=== PATIENT | female | born 1995 | race Caucasian/White ===

== ENCOUNTER → 2021-05-27 10:20 | Outpatient (CLI) | payer BC, SELFPAY ==
--- NOTE | 2021-05-27 10:25 | XR_ITS ---
PROCEDURE: XR FOOT WT BEARING LT 3V CLINICAL INDICATION: pain COMPARISON: No exams were available for comparison FINDINGS: No fracture or dislocation. No lytic or blastic change. There is normal mineralization. The joint spaces are well-preserved. No significant degenerative/arthritic changes. No erosive changes evident. Other findings:No calcaneal spur. No radiopaque foreign body IMPRESSION: No acute findings. Dictated by: Bryan Edwards MD 05/27/2021 13:04 Bryan Edwards MD in [place] 05/27/2021 13:04
--- NOTE | 2021-05-27 10:25 | XR_ITS ---
PROCEDURE: XR FOOT WT BEARING RT 3V CLINICAL INDICATION: pain COMPARISON: No exams were available for comparison FINDINGS: No fracture or dislocation. No lytic or blastic change. There is normal mineralization. The joint spaces are well-preserved. No significant degenerative/arthritic changes. No erosive changes evident. Other findings:None. IMPRESSION: Negative right foot Dictated by: Bryan Edwards MD 05/27/2021 13:05 Bryan Edwards MD in [place] 05/27/2021 13:05
== END ==
PROVIDERS: Visit Provider Podiatrist
DX: M79.672 Pain in left foot (principal); M79.671 Pain in right foot
CPT/HCPCS: 73630

== ENCOUNTER 2023-11-08 09:02 | Emergency (ER) | payer OTHER, SELFPAY ==
[2023-11-08 09:05] VITALS: BP 154/74; PULSE 74; RESP 18; TEMP 36.7; O2SAT 98; BMI 36.2
--- NOTE | 2023-11-08 09:17 | EXP.UTC ---
Discharge Plan Disposition Patient Disposition: Home, Self-Care Condition: Good Prescriptions Prescriptions: New cyclobenzaprine 10 mg Tablet 10 mg PO BID PRN (Reason: Muscle Spasm) Qty: 20 0RF methylprednisolone 4 mg Tablets,Dose Pack 4 mg PO DIRECTED 6 Days Qty: 21 0RF Rx Instructions: Take 1 pack as directed for 6 days Referrals Follow up/Referrals: Kyle Fonseca MD [Primary Care Provider] - See instructions Activity Restrictions/Add. Instructions Additional Instructions/Restrictions: Go home and rest. It would be best if you rested tomorrow too. No heavy lifting. No twisting. Take the oral medications as directed. The muscle relaxer (cyclobenzaprine--Flexeril) will make you drowsy, so don't drive or operate heavy machinery after taking it. Don't start the oral steroids (medrol dose pack) until tomorrow, since you had the shots in here today. Follow up with your regular doctor. GO TO THE ER FOR ANY WORSENING SYMPTOMS OR CONCERN, ESPECIALLY BOWEL OR BLADDER ISSUES, SADDLE AREA NUMBNESS, FEVER, ETC Clinical Impressions Clinical Impression: Acute low back pain with sciatica Stand Alone Forms Stand Alone Forms: Work/School Release Instructions Patient Instructions: DI for Low Back Pain, DI for Sciatica, Dexamethasone, Ketorolac Injection Discharge ED Provider: Massimo Copeland [facility] General Stated complaint: back pain Time Seen by Provider: 11/08/23 09:17 History of Present Illness Provider Complaint: She states that for the past 5 days she has had worsening low back pain that radiates down her right leg. She denies any fall or trauma. She denies any urinary symptoms. Related Data Previous Rx's Medication Instructions Recorded cyclobenzaprine 10 mg tablet 10 mg PO BID PRN Muscle Spasm #20 11/08/23 tabs methylprednisolone 4 mg tablets in 4 mg PO DIRECTED 6 days #21 tabs 11/08/23 a dose pack Allergies Allergy/AdvReac Type Severity Reaction Status Date / Time No Known Allergies Allergy Verified 11/08/23 09:17 [facility] Disclaimer: The information contained in this section may have been updated after the patient was seen, as this information can be updated by other users. Social History Smoking Status: Current every day smoker alcohol intake: never current occupational status: other Travel in the last 8 weeks: None ROS Obtained: Yes All systems reviewed & no additional complaints except as documented Constitutional Constitutional: Denies chills and Denies fever(s) Eyes Eyes: Denies eye discharge ENT Ears, Nose, Mouth, and Throat: Denies dizziness, Denies otalgia, Denies neck pain and Denies sore throat Cardiovascular Cardiovascular: Denies chest pain Respiratory Respiratory: Denies shortness of breath, Denies chest congestion, Denies cough, Denies stridor and Denies wheezing Gastrointestinal Gastrointestingal: Denies nausea or vomiting Musculoskeletal Musculoskeletal: Reports as per HPI, Reports back pain and Denies neck pain Integumentary/Breasts Skin/Breast: Denies rash Neurologic Neurologic: Denies dizziness and Denies paresthesias Allergic/Immunologic Allergic/Immunologic: Denies wheezing Physical Exam General General appearance: alert and in no apparent distress Head Head exam: atraumatic, normocephalic and normal inspection Eye Eye exam: Present normal appearance, PERRL and EOMI ENT ENT exam: Present normal exam, normal oropharynx, mucous membranes moist, TM's normal bilaterally and normal external ear exam Neck Neck exam: Present normal inspection, full ROM and trachea midline; Absent meningismus or lymphadenopathy Chest Chest inspection: Present normal inspection and symmetric chest wall rise; Absent tenderness Respiratory Respiratory exam: Present normal lung sounds bilaterally; Absent respiratory distress Cardiovascular Cardiovascular exam: Present regular rate and normal rhythm; Absent JVD Abdominal Exam Abdominal exam: Present soft and normal bowel sounds; Absent distention, tenderness or guarding Extremities Exam Extremities exam: Present normal inspection, full ROM and normal capillary refill; Absent calf tenderness Back Exam Back exam: Present normal inspection; Absent tenderness Neurological Exam Neurological exam: Present alert, oriented X3, CN II-XII intact, normal gait and reflexes normal; Absent motor sensory deficit Expanded Neurological Exam Cranial nerves: Normal: EOM function (II, III, IV, ), facial sensation (V), facial palsy (VII), gag reflex (IX), spinal accessory function (XI) and tongue deviation (XII) Cerebellar function: normal gait Motor strength - LUE: 5/5 Motor strength - RUE: 5/5 Motor strength - LLE: 5/5 Motor strength - RLE: 5/5 Sensory exam upper extremity: Normal: light touch and 2 point discrimination Sensory exam lower extremity: Normal: light touch and 2 point discrimination DTR: 2+: biceps (L), biceps (R), patellar (L), patellar (R), Achilles tendon (L) and Achilles tendon (R) Spinal cord function: Absent saddle anesthesia Psychiatric Psychiatric exam: Present normal affect and normal mood Skin Skin exam: Present warm, dry, intact and normal color Lymphatic Lymphatic Findings: no adenopathy Medical Decision Making Medical Records Medical records reviewed: No I reviewed the patient's medical records. Anthony Inquiry Pt receiving controlled substance: No
[2023-11-08 09:18] LABS: Apearance,Urine Clear (Clear); Color,Urine Yellow (Yellow); PH,Urine 5.5 (5.0-8.5)
[2023-11-08 09:19] LABS: Bilirubin,Urine Negative (Negative); Blood, Urine Negative (Negative); Glucose,Urine (UA) Negative (Negative); Ketones,Urine Negative (Negative); Protein,Urine Negative (Negative); UTC Leukocyte Esterase,Urine Negative (Negative); UTC Nitrate,Urine Negative (Negative); Urobilinogen,Urine 0.2 EU/dl (0.2)
[2023-11-08] MEDS: DEXAMETHASONE 4MG/ML 1ML VIAL 8 MG IM (09:29)
[2023-11-08] MEDS: KETOROLAC 60MG/2ML VIAL 30 MG IM (09:29)
[2023-11-08 09:55] VITALS: BP 154/74; PULSE 74; RESP 18; TEMP 36.7; O2SAT 98
== END 2023-11-08 09:55 | disposition home or self-care (01) ==
PROVIDERS: Emergency Provider Nurse Practitioner Family; PCP Internal Medicine Adolescent Medicine
DX: M54.41 Lumbago with sciatica, right side (principal); F17.210 Nicotine dependence, cigarettes, uncomplicated
CPT/HCPCS: 81003; 96372; 99204; 99212; G0463

== ENCOUNTER 2025-02-11 18:50 | Emergency (ER) | payer OTHER, SELFPAY ==
[2025-02-11] VITALS (9 sets, daily range): BP systolic 127–159; BP diastolic 77–96; PULSE 59–74; RESP 18–19; TEMP 36.8–37.2; O2SAT 97–100; BMI 23.3
--- NOTE | 2025-02-11 18:56 | ECG_ITS ---
APPROVED REPORT Exam: Resting ECG HR:63 bpm ECG Measurements Heart Rate 63 AXES OH 151 P 35 QRSd 98 QRS 35 QT 382 T 24 QTc 389 Conclusion SINUS RHYTHM NORMAL ECG Electronically signed by : COLT DOWLING, 02/11/2025 22:19:49
--- NOTE | 2025-02-11 18:59 | ED_ITS ---
<Statement entered by Matt Ingram MD - 02/11/25 21:52> I was consulted by the MANDY, and we discussed the complexity of the problems being addressed. I approved the treatment and management plan for this patient's care in the emergency department, thus performing a substantive portion of the medical decision making. Matt Ingram MD Discharge Plan Disposition Patient Disposition: Home, Self-Care Condition: Good Prescriptions Prescriptions: New ondansetron 4 mg tablet,disintegrating 4 mg PO QID PRN (Reason: nausea and vomiting) Qty: 10 0RF No Action cyclobenzaprine 10 mg Tablet 10 mg PO BID PRN (Reason: Muscle Spasm) Qty: 20 0RF methylprednisolone 4 mg Tablets,Dose Pack 4 mg PO DIRECTED 6 Days Qty: 21 0RF Rx Instructions: Take 1 pack as directed for 6 days Referrals Follow up/Referrals: Steve Johnson MD [Staff Physician] - See instructions Kyle Fonseca MD [Primary Care Provider] - See instructions Activity Restrictions/Add. Instructions Additional Instructions/Restrictions: I am referring you to general surgery as this is concerning for gallbladder attack. Additionally you have an ovarian cyst that needs to be followed by [facility]. Please call to make an appointment for that as well. If you have any continued new or worsening signs or symptoms follow-up with your PCP return to the ER as needed. Clinical Impressions Clinical Impression: Biliary colic Cholelithiasis Qualifiers: Cholelithiasis location: gallbladder Cholecystitis presence: without cholecystitis Biliary obstruction: with biliary obstruction Qualified Code(s): K 80.21 - Calculus of gallbladder without cholecystitis with obstruction Instructions Patient Instructions: DI for Acute Abdominal Pain Print Language Print Language: Estonian Discharge ED Provider: Matt Ingram General Adult HPI <DAVID Abarca - Last Filed: 02/11/25 21:46> General Chief complaint: Abdominal Pain Stated complaint: Difficulty breathing Time Seen by Provider: 02/11/25 18:59 History of Present Illness HPI narrative: Patient presents for evaluation of right upper quadrant abdominal pain. Patient states that pain began approximately an hour ago now but 20 minutes after eating to peanut butter crackers. Her only other meal today was eggs. Patient has had a normal bowel movement she denies fever chills hemoptysis hematochezia melena vomiting or diarrhea but reports nausea that is associated with this pain. She reports that it hurts to take a deep breath. Very focally tender in the right upper quadrant/right lower chest. She is G4, P2 Ab2. Related Data Previous Rx's ?Medication ?Instructions ?Recorded cyclobenzaprine 10 mg tablet 10 mg PO BID PRN Muscle Spasm #20 11/08/23 tabs methylprednisolone 4 mg tablets in 4 mg PO DIRECTED 6 days #21 tabs 11/08/23 a dose pack ondansetron 4 mg disintegrating 4 mg PO QID PRN nausea and 02/11/25 tablet vomiting #10 tabs Allergies Allergy/AdvReac Type Severity Reaction Status Date / Time No Known Allergies Allergy Verified 11/08/23 09:17 [facility] <DAVID Abarca - Last Filed: 02/11/25 21:46> [facility] Disclaimer: The information contained in this section may have been updated after the patient was seen, as this information can be updated by other users. Social History Smoking Status: Current every day smoker alcohol intake: never current occupational status: other Travel in the last 8 weeks: None Have you lived/traveled outside [place] in past 30 days?: No Contact w/someone who lives/traveled outside US past 30 days?: No Exposure to someone with infectious disease in past 14 days?: No Do you have a fever (greater than 100.4 F or 38 C)?: No Have you tested positive for COVID-19: No Exposed to someone with COVID-19 in past 14 days?: No Do you have a sore throat?: No Do you have a cough?: No Do you have any weakness?: No Do you have any diarrhea?: No Are you experiencing any unusual bleeding?: No Do you have any muscle aches/pain?: No Do you have any abdominal pain?: No Are you experiencing loss of taste or smell?: No Other Medical History Have you received the Pneumonia Vaccine: No <DAVID Abarca - Last Filed: 02/11/25 21:46> ROS Obtained: Yes Systems reviewed as appropriate & no additional complaints except as documented Physical Exam <DAVID Abarca - Last Filed: 02/11/25 21:46> General General appearance: alert Neck Neck exam: Present lymphadenopathy Respiratory Respiratory exam: Present normal lung sounds bilaterally Cardiovascular Cardiovascular exam: Present regular rate Neurological Exam Neurological exam: Present alert and oriented X3 Medical Decision Making <DAVID Abarca - Last Filed: 02/11/25 21:46> Medical Records Medical records reviewed: Yes I reviewed the patient's medical records. Screening: Per USPSTF and CDC recommendations, given the prevalence of disease in our region, it is our hospital?s policy to screen for HIV and viral Hepatitis for all patients aged 18 and over and those with ongoing risk factors. Anthony Inquiry Pt receiving controlled substance: No Vital Signs: 02/11/25 18:58 02/11/25 19:00 02/11/25 19:00 Temperature 98.2 F Temperature Source Oral Pulse Rate 67 71 Pulse Rate [Left Radial] 69 Respiratory Rate 19 Blood Pressure 158/93 H 159/96 H Blood Pressure [Right Arm] 159/96 H Blood Pressure Mean [Right Arm] 117 02 Sat by Pulse Oximetry 99 97 99 Oxygen Delivery Method 02/11/25 19:10 02/11/25 19:20 02/11/25 19:30 Temperature Temperature Source Pulse Rate 74 70 65 Pulse Rate [Left Radial] Respiratory Rate Blood Pressure 152/84 H 155/96 H 139/83 Blood Pressure [Right Arm] Blood Pressure Mean [Right Arm] 02 Sat by Pulse Oximetry 99 100 99 Oxygen Delivery Method 02/11/25 19:40 02/11/25 19:50 02/11/25 20:00 Temperature Temperature Source Pulse Rate 72 70 66 Pulse Rate [Left Radial] Respiratory Rate Blood Pressure 134/77 137/82 143/82 H Blood Pressure [Right Arm] Blood Pressure Mean [Right Arm] 02 Sat by Pulse Oximetry 99 99 99 Oxygen Delivery Method 02/11/25 21:13 Temperature 98.9 F Temperature Source Temporal Artery Scan Pulse Rate 59 L Pulse Rate [Left Radial] Respiratory Rate 18 Blood Pressure 127/85 Blood Pressure [Right Arm] Blood Pressure Mean [Right Arm] 02 Sat by Pulse Oximetry Oxygen Delivery Method Room Air Lab Data Lab results reviewed: Yes I reviewed the patient's lab results. Lab Results 02/11/25 18:58: WBC 11.3 H, RBC 4.31, Hgb 13.0, Hct 38.7, MCV 89.8, MCH 30.2, MCHC 33.6, RDW 13.4, Plt Count 307, MPV 9.7, Neut % (Auto) 69.7, Lymph % (Auto) 23.1, [place] % (Auto) 4.8, Eos % (Auto) 1.6, Baso % (Auto) 0.5, Neut # (Auto) 7.9 H, Lymph # (Auto) 2.6, [place] # (Auto) 0.5, Eos # (Auto) 0.2, Baso # (Auto) 0.1, Sodium 139, Potassium 3.8, Chloride 108 H, Carbon Dioxide 20 L, Anion Gap 14.8, BUN 7, Creatinine 0.40 L, Estimated Creat Clear 215, Estimated GFR 189, Est GFR ( Amer) 228, Glucose 95, Calcium 9.5, Total Bilirubin 0.4, AST 43 H, ALT 39, Alkaline Phosphatase 69, Total Protein 7.3, Albumin 4.4, Globulin 2.9, Albumin/Globulin Ratio 1.5, Lipase 126, Procalcitonin 0.036, Serum HCG, Qual Negative, HCV Ab DOUG w/Rflx PCR Qn Negative 02/11/25 20:22: Urine Color Yellow, Urine Appearance Slightly cloudy, Urine pH 6.5, Ur Specific [place] 1.015, Urine Protein Trace, Urine Glucose (UA) Negative, Urine Ketones Negative, Urine Blood 3+ A, Urine Nitrate Negative, Urine Bilirubin Negative, Urine Urobilinogen 0.2, Ur Leukocyte Esterase 1+ A, Urine RBC 50-100, Urine WBC 5-10, Ur Squamous Epith Cells 3-5, Urine Bacteria 1+ 02/11/25 18:58 02/11/25 18:58 Orders (Tests/Meds): ED MEDICATIONS Discontinued Medications Generic Name Dose Route Start Last Admin Trade Name Isaac PRN Reason Stop Dose Admin Acetaminophen 1,000 mg 02/11/25 19:09 02/11/25 19:15 Acetaminophen 500mg Tab PO 02/11/25 19:10 1,000 mg ONCE ONE Administration Hydromorphone HCl 0.5 mg 02/11/25 19:09 02/11/25 19:15 Hydromorphone 2mg/Ml Syringe IV 02/11/25 19:10 0.5 mg ONCE ONE Administration Sodium Chloride 1,000 mls @ 999 mls/hr 02/11/25 19:09 02/11/25 19:16 Sod Chlor 0.9% 1000ml Bag IV 02/11/25 20:09 999 mls/hr .Q1H1M ONE Administration Iopamidol 75 ml 02/11/25 20:10 02/11/25 20:13 Iopamidol-370 (76%);100ml Bottle IV 02/11/25 20:11 75 ml ONCE ONE Administration Ketorolac Tromethamine 15 mg 02/11/25 19:09 02/11/25 19:15 Ketorolac 30mg/Ml Vial IV 02/11/25 19:10 15 mg ONCE ONE Administration Ondansetron HCl 4 mg 02/11/25 19:09 02/11/25 19:15 Ondansetron 4mg/2ml Vial IV 02/11/25 19:10 4 mg ONCE ONE Administration Sodium Chloride 10 ml 02/11/25 20:10 02/11/25 20:13 Sodium Chloride 0.9% 10ml Syr (Rad Only) IV 02/11/25 20:11 10 ml ONCE ONE Administration ORDERS Category Date Time Status CT abdomen pelvis w con Stat Cat Scan 02/11/25 19:09 Completed POCUS Point of Care (ER Only) Stat Exams 02/11/25 19:09 Taken CBC w/Auto Diff [Complete Blood Count Auto Diff] Stat Lab 02/11/25 18:58 Completed CMP [Comprehensive Metabolic Panel] Stat Lab 02/11/25 18:58 Completed HCG Qualitative, Serum Stat Lab 02/11/25 18:58 Completed HIV Combo Stat Lab 02/11/25 18:58 Received Hepatitis C Ab Qual. W/ RFX Stat Lab 02/11/25 18:58 Completed Lipase Stat Lab 02/11/25 18:58 Completed Procalcitonin Stat Lab 02/11/25 18:58 Completed UA [Urinalysis and Microscopic] Stat Lab 02/11/25 20:22 Completed Urine Culture Stat Micro 02/11/25 20:22 Received Medical Decision Narrative: In summary patient is a 30-year-old female who presents to the emergency department for evaluation of right upper quadrant abdominal pain. Patient is hemodynamically stable with a blood pressure 159/96 heart rate 69 with a normal sinus rhythm on the bedside monitor breathing 19 times a minute satting at 97% room air upon arrival, afebrile at 98.2. Physical exam reveals a well-nourished well-developed 30-year-old female who appears to be in acute pain. She has exquisite tenderness in the right upper quadrant with no rebound or guarding or rigidity. Bowel sounds normal active abdomen is soft. Patient was cleared to go bilateral to the bases without adventitious sounds.. Differential diagnosis includes cholecystitis versus cholelithiasis versus pancreatitis etc. Initial workup will be conducted with hematologic labs urinalysis CT scan abdomen pelvis with contrast. Initial interventions include crystalloid bolus Tylenol Toradol Zofran. Initial workup reviewed by me and her hematologic labs are nonactionable and my informal interpretation of her CT scan shows a very large gallbladder but no pericholecystic fluid or wall thickening. I am unable to appreciate a gallstone on imaging. However POCUS does reveal gallstones within the body of the gallbladder.. Upon repeat evaluation patient had complete resolution of her symptoms after initial intervention. Given this I am referring the patient on to general surgery for further evaluation and [facility]OPE[facility]. Will send in a prescription for Zofran. Additionally patient needs to follow-up with [facility] for an ovarian cyst found incidentally on her CT scan. Patient verbalized understanding agreement. Procedure: Procedure performed was right upper quadrant ultrasound. Procedure performed by Matt Ingram. Using the curvilinear probe the gallbladder was identified in the right upper quadrant, there is a gallstone present, no pericholecystic fluid, normal gallbladder thickness. Patient tolerated procedure well. There were no immediate complications. <Matt Ingram MD - Last Filed: 02/11/25 21:19> Vital Signs: 02/11/25 18:58 02/11/25 19:00 02/11/25 19:00 Temperature 98.2 F Temperature Source Oral Pulse Rate 67 71 Pulse Rate [Left Radial] 69 Respiratory Rate 19 Blood Pressure 158/93 H 159/96 H Blood Pressure [Right Arm] 159/96 H Blood Pressure Mean [Right Arm] 117 02 Sat by Pulse Oximetry 99 97 99 Oxygen Delivery Method 02/11/25 19:10 02/11/25 19:20 02/11/25 19:30 Temperature Temperature Source Pulse Rate 74 70 65 Pulse Rate [Left Radial] Respiratory Rate Blood Pressure 152/84 H 155/96 H 139/83 Blood Pressure [Right Arm] Blood Pressure Mean [Right Arm] 02 Sat by Pulse Oximetry 99 100 99 Oxygen Delivery Method 02/11/25 19:40 02/11/25 19:50 02/11/25 20:00 Temperature Temperature Source Pulse Rate 72 70 66 Pulse Rate [Left Radial] Respiratory Rate Blood Pressure 134/77 137/82 143/82 H Blood Pressure [Right Arm] Blood Pressure Mean [Right Arm] 02 Sat by Pulse Oximetry 99 99 99 Oxygen Delivery Method 02/11/25 21:13 Temperature 98.9 F Temperature Source Temporal Artery Scan Pulse Rate 59 L Pulse Rate [Left Radial] Respiratory Rate 18 Blood Pressure 127/85 Blood Pressure [Right Arm] Blood Pressure Mean [Right Arm] 02 Sat by Pulse Oximetry Oxygen Delivery Method Room Air Lab Data Lab Results 02/11/25 18:58: WBC 11.3 H, RBC 4.31, Hgb 13.0, Hct 38.7, MCV 89.8, MCH 30.2, MCHC 33.6, RDW 13.4, Plt Count 307, MPV 9.7, Neut % (Auto) 69.7, Lymph % (Auto) 23.1, [place] % (Auto) 4.8, Eos % (Auto) 1.6, Baso % (Auto) 0.5, Neut # (Auto) 7.9 H, Lymph # (Auto) 2.6, [place] # (Auto) 0.5, Eos # (Auto) 0.2, Baso # (Auto) 0.1, Sodium 139, Potassium 3.8, Chloride 108 H, Carbon Dioxide 20 L, Anion Gap 14.8, BUN 7, Creatinine 0.40 L, Estimated Creat Clear 215, Estimated GFR 189, Est GFR ( Amer) 228, Glucose 95, Calcium 9.5, Total Bilirubin 0.4, AST 43 H, ALT 39, Alkaline Phosphatase 69, Total Protein 7.3, Albumin 4.4, Globulin 2.9, Albumin/Globulin Ratio 1.5, Lipase 126, Procalcitonin 0.036, Serum HCG, Qual Negative, HCV Ab DOUG w/Rflx PCR Qn Negative 02/11/25 20:22: Urine Color Yellow, Urine Appearance Slightly cloudy, Urine pH 6.5, Ur Specific [place] 1.015, Urine Protein Trace, Urine Glucose (UA) Negative, Urine Ketones Negative, Urine Blood 3+ A, Urine Nitrate Negative, Urine Bilirubin Negative, Urine Urobilinogen 0.2, Ur Leukocyte Esterase 1+ A, Urine RBC 50-100, Urine WBC 5-10, Ur Squamous Epith Cells 3-5, Urine Bacteria 1+ Orders (Tests/Meds): ED MEDICATIONS Discontinued Medications Generic Name Dose Route Start Last Admin Trade Name Isaac PRN Reason Stop Dose Admin Acetaminophen 1,000 mg 02/11/25 19:09 02/11/25 19:15 Acetaminophen 500mg Tab PO 02/11/25 19:10 1,000 mg ONCE ONE Administration Hydromorphone HCl 0.5 mg 02/11/25 19:09 02/11/25 19:15 Hydromorphone 2mg/Ml Syringe IV 02/11/25 19:10 0.5 mg ONCE ONE Administration Sodium Chloride 1,000 mls @ 999 mls/hr 02/11/25 19:09 02/11/25 19:16 Sod Chlor 0.9% 1000ml Bag IV 02/11/25 20:09 999 mls/hr .Q1H1M ONE Administration Iopamidol 75 ml 02/11/25 20:10 02/11/25 20:13 Iopamidol-370 (76%);100ml Bottle IV 02/11/25 20:11 75 ml ONCE ONE Administration Ketorolac Tromethamine 15 mg 02/11/25 19:09 02/11/25 19:15 Ketorolac 30mg/Ml Vial IV 02/11/25 19:10 15 mg ONCE ONE Administration Ondansetron HCl 4 mg 02/11/25 19:09 02/11/25 19:15 Ondansetron 4mg/2ml Vial IV 02/11/25 19:10 4 mg ONCE ONE Administration Sodium Chloride 10 ml 02/11/25 20:10 02/11/25 20:13 Sodium Chloride 0.9% 10ml Syr (Rad Only) IV 02/11/25 20:11 10 ml ONCE ONE Administration ORDERS Category Date Time Status CT abdomen pelvis w con Stat Cat Scan 02/11/25 19:09 Completed POCUS Point of Care (ER Only) Stat Exams 02/11/25 19:09 Taken CBC w/Auto Diff [Complete Blood Count Auto Diff] Stat Lab 02/11/25 18:58 Completed CMP [Comprehensive Metabolic Panel] Stat Lab 02/11/25 18:58 Completed HCG Qualitative, Serum Stat Lab 02/11/25 18:58 Completed HIV Combo Stat Lab 02/11/25 18:58 Received Hepatitis C Ab Qual. W/ RFX Stat Lab 02/11/25 18:58 Completed Lipase Stat Lab 02/11/25 18:58 Completed Procalcitonin Stat Lab 02/11/25 18:58 Completed UA [Urinalysis and Microscopic] Stat Lab 02/11/25 20:22 Completed Urine Culture Stat Micro 02/11/25 20:22 Received ECG Data Tracing #1: Independently interpreted by me rate is 63, rhythm is regular, axis is normal, no ST elevation in anatomical contiguous leads, QTc 389 Medical Decision Narrative: In summary patient is a 30-year-old female who presents to the emergency department for evaluation of right upper quadrant abdominal pain. Patient is hemodynamically stable with a blood pressure 159/96 heart rate 69 with a normal sinus rhythm on the bedside monitor breathing 19 times a minute satting at 97% room air upon arrival, afebrile at 98.2. Physical exam reveals a well-nourished well-developed 30-year-old female who appears to be in acute pain. She has exquisite tenderness in the right upper quadrant with no rebound or guarding or rigidity. Bowel sounds normal active abdomen is soft. Patient was cleared to go bilateral to the bases without adventitious sounds.. Differential diagnosis includes cholecystitis versus cholelithiasis versus pancreatitis etc. Initial workup will be conducted with hematologic labs urinalysis CT scan abdomen pelvis with contrast. Initial interventions include crystalloid bolus Tylenol Toradol Zofran. Initial workup reviewed by me [hematologic labs are remarkable for... Imaging remarkable for... Urinalysis remarkable for]. Upon repeat evaluation [patient had acceptable resolution of symptoms, had persistent pain for which additional interventions were conducted (describe interventions), tolerated p.o., was ambulatory, etc.]. Given this [patient is appropriate for discharge at this time and will be discharged with a prescription for... The case was discussed with hospital medicine regarding management and they will admit the patient their service for continued evaluation at this time... Etc.] Procedure: Procedure performed was right upper quadrant ultrasound. Procedure performed by Matt Ingram. Using the curvilinear probe the gallbladder was identified in the right upper quadrant, there is a gallstone present, no pericholecystic fluid, normal gallbladder thickness. Patient tolerated procedure well. There were no immediate complications. Critical Care <DAVID Abarca - Last Filed: 02/11/25 21:46> Critical Care Time Critical Care Time: Yes Attestation: On 02/11/25, the high probability of a clinically significant, sudden or life threatening deterioration of the following system(s) required my full and direct attention, intervention and personal management. The time I documented below is in addition to time spent performing reported procedures but includes the following listed in this critical care notation. Total Time Total Critical Care Time: 35
--- NOTE | 2025-02-11 19:09 | CT_ITS ---
PROCEDURE INFORMATION: Exam: CT Abdomen And Pelvis With Contrast Exam date and time: 02/11/2025 8:13 PM Age: 30 years old Clinical indication: Abdominal pain; Additional info: Right upper quadrant pain TECHNIQUE: Imaging protocol: Computed tomography of the abdomen and pelvis with contrast. Radiation optimization: All CT scans at this facility use at least one of these dose optimization techniques: automated exposure control; mA and/or kV adjustment per patient size (includes targeted exams where dose is matched to clinical indication); or iterative reconstruction. Contrast material: ISOVUE; Contrast volume: 75 ml; Contrast route: IV; COMPARISON: No relevant prior studies available. FINDINGS: Pleural spaces: There are no pleural effusions. Heart: The visualized portions of the heart are unremarkable. There is no evidence of pericardial fluid collections. Diaphragm: There is mild elevation of the left hemidiaphragm. Liver: There is mild enlargement of the liver. Liver measures 24.1 cm in CC dimension. Gallbladder and biliary ducts: The gallbladder is normal. Pancreas: Normal. No ductal dilation. Spleen: An accessory splenule is present. There are subtle areas of somewhat lobular decreased attenuation within the spleen which are nonspecific and could be artifact secondary to the stage of contrast enhancement. Difficult to entirely exclude true abnormality as recommend additional evaluation. An accessory splenule is present. Adrenal glands: Normal. No mass. Kidneys and ureters: The kidneys are normal. Stomach and bowel: The stomach is normal. Lack of gastrointestinal contrast limits evaluation of bowel. There are a few loops of proximal small bowel which show mild apparent mural thickening, possibly an artifact of incomplete distension. Cannot entirely exclude enteritis or other inflammatory/infiltrative processes in the appropriate clinical setting. Correlate clinically. Remaining unopacified loops of small bowel within range of normal. The colon is normal. Appendix: A normal appendix is identified. Intraperitoneal space: There is no evidence of free intraperitoneal or pelvic fluid. No evidence of intraperitoneal free air. Vasculature: There are a few benign phleboliths in the pelvis. Lymph nodes: There are scattered shotty retroperitoneal lymph nodes, not of pathologic significance by CT size criteria. Urinary bladder: The bladder is normal. Reproductive: The uterus is normal. The right ovary is normal. There is a 5.8 x 6.0 x 4.9 cm cyst involving the left ovary. The right ovary appears normal. Bones/joints: There are 2 ovoid foci of increased density in the right proximal femur which are nonspecific but may reflect bone islands. There is mild subchondral sclerosis involving the inferior sacroiliac joints bilaterally consistent with degenerative/inflammatory change.The thoracolumbar spine demonstrates mild degenerative changes at multiple levels. There is no evidence of acute fracture. Soft tissues: No significant soft tissue edema. IMPRESSION: 1. A few loops of proximal small bowel show mild apparent mural thickening, possibly an artifact of incomplete distension. Cannot entirely exclude enteritis or other inflammatory/infiltrative processes in the appropriate clinical setting. Correlate clinically. 2. 5.8 x 6.0 x 4.9 cm left ovarian cyst. Further evaluation with prompt non-emergent ultrasound is recommended to characterize. (Reference: Brandon) 3. Subtle areas of somewhat lobular decreased attenuation within the spleen which are nonspecific and could be artifact secondary to the stage of contrast enhancement. However, recommend clinical correlation and evaluation on a nonemergent basis when the patient's condition permits which could include a splenic ultrasound or MR. 4. Mild hepatomegaly. REFERENCES: Brandon et al. Management of Incidental Adnexal Findings on CT and MRI: A White Paper of the ACR Incidental Findings Committee, J Am Quintin Radiol. 2019;17(2):248-254.
--- NOTE | 2025-02-11 19:13 | HMH.ITSTN ---
called & asked for a preg test
[2025-02-11] MEDS: ACETAMINOPHEN 500MG TAB 1000 MG PO (19:15)
[2025-02-11] MEDS: ONDANSETRON 4MG/2ML VIAL 4 MG IV (19:15)
[2025-02-11] MEDS: KETOROLAC 30MG/ML VIAL 15 MG IV (19:15)
[2025-02-11] MEDS: HYDROMORPHONE 2MG/ML SYRINGE 0.5 MG IV (19:15)
[2025-02-11] MEDS: 0.9 % SODIUM CHLORIDE 1000ML 1,000 ML 999 ML IV (19:16)
[2025-02-11 19:26] LABS: Basophils # 0.1 K/mm3 (0-0.2); Basophils % 0.5 % (0.1-2.0); Eosinophils # 0.2 Kmm3 (0.0-0.4); Eosinophils % 1.6 % (0.1-12.0); Hematocrit 38.7 % (37.0-47.0); Lymphocytes # 2.6 K/mm3 (0.7-4.5); Lymphocytes % 23.1 % (10-50); Mean Corpuscular HGB Conc 33.6 g/dL (31.8-35.4); Mean Corpuscular Hemoglobin 30.2 pg (27.0-31.2); Mean Corpuscular Volume 89.8 fl (81-99); Mean Platelet Volume 9.7 fl (7.4-10.4); Monocytes # 0.5 K/mm3 (0.1-1.0); Monocytes % 4.8 % (1.7-9.3); Neutrophils # 7.9 K/mm3 (1.8-7.8); Neutrophils % 69.7 % (37.0-80.0); Nucleated Red Blood Cells # 0 10^3/uL; Nucleated Red Blood Cells % 0 %; Platelet Count 307 K/mm3 (142-424); Red Blood Count 4.31 M/mm3 (4.20-5.40); Red Cell Distribution Width 13.4 % (11.5-17.5); Red Cell Distribution Width-SD 44.2 fL; White Blood Count 11.3 K/mm3 (4.8-10.8)
[2025-02-11 20:02] LABS: HCG Qualitative, Serum Negative (Negative)
[2025-02-11 20:07] LABS: Alanine Aminotransferase 39 U/L (12-78); Albumin Level 4.4 g/dl (3.5-5.0); Albumin/Globulin Ratio 1.5 (1.1-1.8); Alkaline Phosphatase 69 U/L (38-126); Anion Gap 14.8 mEq/L (5-15); Aspartate Amino Transferase 43 U/L (14-36); Bilirubin,Total 0.4 mg/dl (0.2-1.3); Blood Urea Nitrogen 7 mg/dl (7-17); Calcium 9.5 mg/dl (8.4-10.2); Carbon Dioxide 20 mmol/L (22.0-30.0); Chloride 108 mmol/L (98-107); Creatinine Clearance Estimated 215 mL/min (50-200); Estimated Glomerular Filt Rate 189 ml/min (>60); GFR (African American) 228 ML/MIN (>60); Globulin 2.9 g/dL (1.3-3.2); Glucose 95 mg/dl (74-100); Lipase 126 U/L (23-300); Potassium 3.8 mmoL/L (3.5-5.1); Sodium 139 mmol/L (136-145); Total Protein,Serum 7.3 g/dl (6.3-8.2)
[2025-02-11] MEDS: IOPAMIDOL-370 (76%);100ML BOTTLE 75 ML IV (20:13)
[2025-02-11] MEDS: SODIUM CHLORIDE 0.9% 10ML SYR (RAD ONLY) 10 ML IV (20:13)
[2025-02-11 20:25] LABS: Procalcitonin 0.036 ng/mL (0.0-2.0)
[2025-02-11 20:27] LABS: Microscopic, Urine URINE MICROSCOPIC (MICROSCOPIC)
[2025-02-11 20:53] LABS: Bilirubin,Urine Negative (Negative); Blood, Urine 3+ (Negative); Color,Urine YELLOW (Yellow); Glucose,Urine (UA) Negative (Negative); Ketones,Urine Negative (Negative); Leukocyte Esterase,Urine 1+ (Negative); Nitrate,Urine Negative (Negative); PH,Urine 6.5 (5.0-8.5); Protein,Urine TRACE (Negative); Specific Gravity, Urine 1.015 (1.005-1.030); Urobilinogen,Urine 0.2 EU/dl (0.2)
[2025-02-11 20:57] LABS: Hepatitis C Ab Qual. W/ RFX NEGATIVE (Negative)
[2025-02-11 21:29] LABS: Appearance,Urine Slightly Cloudy (Clear)
[2025-02-11 21:30] LABS: Bacteria,Urine 1+ /lpf; RBC,Urine 50-100 #/hpf (0-3)
[2025-02-13 11:05] LABS: HIV Combo NEGATIVE (Negative)
== END 2025-02-11 21:20 | disposition home or self-care (01) ==
PROVIDERS: Physician Assistant; Emergency Provider Emergency Medicine; PCP Internal Medicine Adolescent Medicine
DX: R10.11 Right upper quadrant pain (principal); R07.1 Chest pain on breathing; K80.20 Calculus of gallbladder without cholecystitis without obstruction; K80.50 Calculus of bile duct without cholangitis or cholecystitis without obstruction; Z11.59 Encounter for screening for other viral diseases; Z11.4 Encounter for screening for human immunodeficiency virus [HIV]
CPT/HCPCS: 74177; 80053; 81001; 83690; 84145; 84703; 85025; 86803; 87086; 87389; 93005; 96361; 96374; 96375; 99291; J1171; J1885; J2405; J7030; Q9967

== ENCOUNTER 2025-02-26 10:42 | Outpatient (CLI) | payer OTHER, SELFPAY ==
--- NOTE | 2025-02-26 11:00 | US_ITS ---
FINAL REPORT TECHNIQUE: Sonographic images of the abdomen were obtained in all four quadrants. CLINICAL HISTORY: Right upper quad pain FINDINGS: LIVER: There is fatty infiltration of the liver. No focal hepatic lesion or intrahepatic biliary dilatation. The portal vein is patent with normal directional flow. GALLBLADDER: Gallstones are seen in the gallbladder. No pericholecystic fluid collection or gallbladder wall thickening. The common duct measures 4 mm. This is within normal limits for age. PANCREAS: The tail of the pancreas is obscured. The head is normal. RIGHT KIDNEY: 11.5 cm. No hydronephrosis, mass or stone. LEFT KIDNEY: 12.2 cm. No hydronephrosis, mass or stone. SPLEEN: 11.1 cm. No focal splenic lesion. AORTA/IVC: No abdominal aortic aneurysm. Visualized IVC within normal limits. OTHER: No ascites. IMPRESSION: Fatty liver. Cholelithiasis. Reviewed, Interpreted and Dictated by Rekha Ferrari MD Transcribed by Brittney Roberts Authenticated and [facility]
== END 2025-02-26 23:59 | disposition home or self-care (01) ==
LOC: RAD 10:43
PROVIDERS: PCP Internal Medicine Adolescent Medicine; Visit Provider Surgery
DX: R10.11 Right upper quadrant pain (principal)
CPT/HCPCS: 76700

== ENCOUNTER 2025-04-01 12:27 | Outpatient (CLI) | payer OTHER, SELFPAY ==
--- OUTSIDE RECORDS SUMMARY | 2025-02-17 10:45 | XMS_ITS | Encounter Summary ---
Author Organization [facility] Address [address] [place] [address] Care Team Providers Care Crane Ladle Person Name Role Phone Kyle Fonseca MD Primary Care Provider [phone] Encounter Details Date Type Department Care Team ([facility] Contact Info) Description 02/17/2025 10:45 AM EDT Office Visit Medical Office Building Obstetrics and Gynecology [address], [address] [place] [address] Charles Payne MD [address] [place] [address] Family history of miscarriage (Primary Dx) Social History Tobacco Use Types Packs/Day Years Used Date Smoking Tobacco: Every Day Cigarettes 0.5 2 Smokeless Tobacco: Never Tobacco Cessation:Ready to Q uit: Not Asked; Counseling Given: Not Answered Alcohol Use Standard Drinks/Week Comments Not Currently 0 (1 standard drink = 0.6 oz pur e alcohol) Humiliation, Afraid, Rape, and Kick questionnair e Answer Date Recorded Within the last year, have y ou been afraid of your partner or ex-partner? No 02/17/2025 Within the last year, have y ou been humiliated or emotionally abused in other ways by your partner or ex-partner? No Within the last year, have y ou been kicked, hit, slapped, or otherwise physically hurt by your partner or ex-partner? No 02/17/2025 Within the last year, have y ou been raped or forced to have any kind of sexual activity by your partner or ex-partner? No 02/17/2025 Social Connection and Isolation Panel Answer Date Recorded In a typical week, how many times do you talk on the phone with family, friends, or neighbors? More than three times a week 02/17/2025 How often do you get togethe r with friends or relatives? More than three times a week 02/17/2025 How often do you attend chur or spiritism services? Never 02/17/2025 Do you belong to any clubs o r organizations such as scientology groups, unions, fraternal or athletic groups, or school groups? No 02/17/2025 How often do you attend meet ings of the clubs or organizations you belong to? Never 02/17/2025 Are you , , di vorced, , never , or living with a partner? 02/17/2025 AUDIT-C Answer Date Recorded Q1: How often do you have a drink containing alcohol? Never 02/17/2025 Q2: How many drinks containi ng alcohol do you have on a typical day when you are drinking? Patient does not drink Q3: How often do you have si x or more drinks on one occasion? Never 02/17/2025 Overall Financial Resource Strain (CARDIA) Answe r Date Recorded How hard is it for you to pa y for the very basics like food, housing, medical care, and heating? Not hard at all 02/17/2025 PHQ-2 Answer Date Recorded Patient Health Questionnaire-2 Score 0 01/20/2025 [facility] - Occupational Stress Questionnaire Answer Date Recorded Do you feel stress - tense, restless, nervous, or anxious, or unable to sleep at night because your mind is troubled all the time - these days? Not at all 02/17/2025 Exercise Vital Sign Answer Date Recorde d On average, how many days pe r week do you engage in moderate to strenuous exercise (like a brisk walk)? 3 days 02/17/2025 On average, how many minutes do you engage in exercise at this level? 60 min 02/17/2025 Hunger Vital Sign Answer Date Recorded Within the past 12 months, y ou worried that your food would run out before you got the money to buy more. Never true 02/18/20 25 Within the past 12 months, t he food you bought just didn't last and you didn't have money to get more. Never true 02/17/2025 PRAPARE - Transportation Answer Date Re corded In the past 12 months, has l ack of transportation kept you from medical appointments or from getting medications? No 01/22 In the past 12 months, has l ack of transportation kept you from meetings, work, or from getting things needed for daily living? No 02/17/2025 Grant Depression Scale Answer Date Recorded Grant Depression Scale Total 0 06/15/2023 The thought of harming myself has occurred to me . Never 06/15/2023 PHQ-9 Answer Date Recorded Patient Health Questionnaire-9 Score 0 01/20/2025 Housing Stability Vital Sign Answer [place] e Recorded In the last 12 months, was t here a time when you were not able to pay the mortgage or rent on time? No 02/17/2025 In the past 12 months, how m any times have you moved where you were living? 0 02/17/2025 At any time in the past 12 m [facility], were you homeless or living in a longterm (including now)? No 02/17/2025 Utilities Answer Date Recorded In the past 12 months has th e electric, gas, oil, or water company threatened to shut off services in your home? No 02/17/2025 PHQ-2A Answer Date Recorded Patient Health Questionnaire-2 Score 0 06/15/2023 Education Answer Date Recorded What is the highest level of school you have completed or the highest degree you have received? Associate degree: occupational, technical, or vocational program 02/17/2025 Comments No Sex and Gender Information Value Date Recorded Sex Assigned at Not on file Legal Sex Female 5:59 PM EDT Gender Identity Not on file Sexual Orientation Not on file documented as of this encounter Last Filed Vital Signs Vital Sign Reading Time Taken Comments Blood Pressure 127/81 02/17/2025 11:11 AM EDT Pulse 69 02/17/2025 11:11 AM EDT Temperature 36.6 C (97.8 F) 02/17/2025 11:11 AM EDT Respiratory Rate 18 02/17/2025 11:11 AM EDT Oxygen Saturation 97% 02/17/2025 11:11 AM EDT Inhaled Oxygen Concentration - - Weight 108 kg (238 lb 8.6 oz) 02/17/2025 11:11 A M EDT Height 167.6 cm (5' 6 ) 02/17/2025 11:11 AM EDT Body Mass Index 38.5 02/17/2025 11:11 AM EDT documented in this encounter Functional Status * AUDIT-C Score Answer Date of Assessment Author 0 02/17/2025 11:17 AM EDT Odessa Arndt * Question Answer Date of Assessment Author Q1: How often do you have a drink containing alcohol? Never 02/17/2025 11:17 AM EDT Odessa Arndt Q2: How many drinks containing alcohol do you have on a typical day when you are drinking? Patient does not drink 02/17/2025 11:17 AM EDT Odessa Arndt Q3: How often do you have six or more drinks on one occasion? Never 02/17/2025 11:17 AM EDT Odessa Arndt documented as of this encounter Miscellaneous Notes * Progress Notes - Aaliyah Zacarias, MOBILE WEB APPLICATION DEVELOPER - 02/17/2025 10:45 AM EDT MFM Consult Name: Sandra Sol Date of : 1995 Referring Physician: Self referral Reason for consult: SAB x 2 Subjective Sandra Sol is seen today for a MFM consult. The patient is a 30 y.o. with a history of SAB x 2. OB History Para Term AB Living 4 2 2 2 2 SAB IAB Ectopic Multiple Live Births 1 1 2 # Outcome Date GA Lbr Nawaf/2nd Weight Sex Type Anes PTL Lv 4 SAB 01/07/25 16w3d Complete Complications: Other Excessive Bleeding 3 IAB 07/26/24 16w3d Medical Marlen FD 2 Term 04/29/23 39w2d 3629 g F Vag-Spont EPI KARLOS 1 Term 10/09/16 3997 g M Vag-Spont KARLOS Gynecology History Negative pap 06/15/2023 Past Medical History She has a past medical history of Ovarian cyst, PCOS (polycystic ovarian syndrome), and Recurrent loss, antepartum condition or complication (01/06/25). Past Surgical History She has a past surgical history that includes Tonsillectomy (N/A); Adenoidectomy; and [place] tooth extraction. Social History She reports that she has been smoking cigarettes. She has a 1 pack-year smoking history. She has never used smokeless tobacco. She reports that she does not currently use alcohol. She reports that she does not use drugs. Family History Her family history includes Alcohol abuse in her father; Arthritis in her maternal grandmother; Diabetes in her father and maternal grandmother. Current Medications She has a current medication list which includes the following prescription(s): ibuprofen. Allergies Allergies[1] Physical Exam HENT: Head: Normocephalic. Pulmonary: Effort: Pulmonary effort is normal. Neurological: Mental Status: She is alert and oriented to person, place, and time. Skin: General: Skin is warm and dry. Psychiatric: Mood and Affect: Mood normal. Behavior: Behavior normal. Vitals reviewed. Objective Visit Vitals BP 127/81 Pulse 69 Temp 36.6 ??C (97.8 ??F) (Tympanic) Resp 18 Wt Readings from Last 1 Encounters: 02/17/25 108 kg (238 lb 8.6 oz) Current BMI:: Body mass index is 38.5 kg/m??. Assessment/Plan Assessment & Plan H/o miscarriage x 2 G3-Pt had abdominal pain, US in clinic showed no cardiac activity @ 16w1d. Cytotec induction with vaginal delivery 07/2024 G4-Had vaginal spotting and absent cardiac activity @ 16w2d. Vaginal delivery 01/07/25. Retained placenta-banjo curettage performed Negative NT's & NIPT with both pregnancies TORCH titers and APLS labs normal Normal placental pathology tissue still pending per Dr Farley note on 01/20 Anna King, genetic counselor information provided to pt Pt has Mirena in place. Unsure if she desires future pregnancies Encounter Time : A total of 20 minutes was spent on this visit reviewing the patient's history, counseling the patient, and documenting this visit. (Est [id number]) [1] Allergies Allergen Reactions Shrimp Flavor Agent (Non-Screening) Swelling documented in this encounter Plan of Treatment Not on file documented as of this encounter Goals Goal Patient Goal Type Associated Problems Recent Progress Patient-Stated? Author Delayed Delivery Care Plan CPM S22 PP LABOR (OBSTETRICS) No Open Scheduling, Background documented as of this encounter Visit Diagnoses Diagnosis Family history of miscarriage- Primary documented in this encounter Additional Health Concerns Active Problems Noted Date Diagnosed Date CPM S22 PP LABOR (OBSTETRICS) 10/05/2022 Assessment Noted Time PHQ-9 Depression Total Score: 0 01/21/20 25 11:02 AM EDT A fall risk assessment has been complete d for the patient 01/20/2025 11:02 AM EDT A Body Mass Index follow-up plan has been documented for the patient 02/17/2025 4:20 PM EDT documented as of this encounter Care Teams Crane Ladle Person Relationship Specialty Start Date End Date Kyle Fonseca MD [address] [place] [address] PCP - General Internal Medicine 11/25/22 documented as of this encounter
--- OUTSIDE RECORDS SUMMARY | 2025-04-01 12:29 | XMS_ITS | Encounter Summary ---
Author Organization [facility] Address [address] [place] [address] Care Team Providers Care Rattling Machine Tender Name Role Phone Unavailable Primary Care Provider Unavailabl e Encounter Details Date Type Department Care Team (Late st Contact Info) Description 12/14/2019 Transcribed Document [facility] [place] [facility] [place] [address] ProviderMerry MD [address] [place] [id number] Social History Tobacco Use Types Packs/Day Years Used Date Smoking Tobacco: Never Assessed Comments Unknown Sex and Gender Information Value Date Recorded Sex Assigned at Female 04/19/2022 6:34 PM CDT Legal Sex Female 6:34 PM CDT Gender Identity Female 04/19/2022 6:34 PM CDT Sexual Orientation Not on file documented as of this encounter Miscellaneous Notes * Cerner Conversion Note - Historical ProviderMD - 12/14/2019 9:45 PM MEAT PRESS OPERATOR ED Triage Entered On: 12/14/2019 22:40 EST Performed On: 12/14/2019 22:35 EST by Stuart Bailey RN ED Triage Across the Room Chief Complaint : Pt co abcess on her gum. Went to ER monday and was given clindamycin. States she tried to pop it at home, but started to leak in the waiting room Triage Date/Time : 12/14/2019 22:35 EST Stuart Bailey RN - 12/14/2019 22:35 EST DCP GENERIC CODE Tracking Group : [facility] Tracking Acuity : 4 - Non - Urgent Stuart Bailey RN - 12/14/2019 22:35 EST Mode of Arrival : Ambulatory Transported to ED by : Private vehicle To Room Via : Ambulate Accompanied By : Significant other ED Vital Signs : Document Height & Weight : Document ED Allergies : Document ED Reason for Visit : Document Tetanus Immunization : Unknown Stuart Bailey RN - 12/14/2019 22:35 EST Infectious Disease History Physical contact outside [place] in the last 30 days : No Infectious Disease History : None Tuberculosis Symptoms : None Stuart Bailey RN - 12/14/2019 22:35 EST Vital Signs ED Temperature Source : Oral Temperature Mode : Fahrenheit Temperature, Fahrenheit : 98.0 Deg F ED Pain : No Clinical Temperature, C : 36.7 Deg C Oxygen Therapy Mode : Room air Peripheral Pulse Rate : 76 bpm Respiratory Rate : 18 Breaths/Min Systolic Blood Pressure : 138 mmHg Diastolic Blood Pressure : 77 mmHg Oxygen Saturation : 99 % Stuart Bailey RN - 12/14/2019 22:35 EST Allergy (As Of: 12/14/2019 22:40:21 EST) Allergies (Active) No Known Allergies Estimated Onset Date: Unspecified ; Created By: Contributor_system [email or web address]; Reaction Status: Active ; Category: Drug ; Substance: No Known Allergies ; Type: Allergy ; Updated By: Contributor_system, [email or web address]; Reviewed Date: 12/14/2019 22:38 EST Diagnosis Control ED (As Of: 12/14/2019 22:41:45 EST) Diagnoses(Active) Abscess - simple Date: 12/14/2019 ; Diagnosis Type: Reason For Visit ; Confirmation: Complaint of ; Clinical Dx: Abscess - simple ; Classification: Medical ; Clinical Service: Non-Specified ; Code: PNED ; Probability: 0 ; Diagnosis Code: [id number] ED Height and Weight Height Source : Stated Height Entry Format : Grainger Height, Feet : 5 ft(Converted to: 152 cm, 60 Inch) Height, Inches : 6 Inch(Converted to: 0 ft 6 Inch, 15.24 cm) Clinical Height : 167.64 cm Weight Source, ED : Stated [place] Body Weight (IBW) : 58.88 kg Stuart Bailey RN - 12/14/2019 22:35 EST Estimated Weight Type of Weight Measurement Est : Grainger Weight, est lb : 236 lb(Converted to: 107 kg) Estimated Clinical Dosing Weight : 107.27 kg Stuart Bailey RN - 12/14/2019 22:35 EST ED Influenza/Pneumoccocal Vaccine Influenza Immunization, Current Season : No Pneumonia Immunization Received : No Previous Vaccines from Immunization Schedule : No qualifying data available. Stuart Bailey RN - 12/14/2019 22:35 EST documented in this encounter Plan of Treatment Not on file documented as of this encounter Visit Diagnoses Not on filedocumented in this encounter
--- OUTSIDE RECORDS SUMMARY | 2025-04-01 12:29 | XMS_ITS | Encounter Summary ---
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 Role Phone Unavailable Primary Care Provider Unavailabl e Encounter Details Date Type Department Care Team (Late st Contact Info) Description 12/15/2019 Transcribed Document [facility] Family [place] [facility] [address] ProviderMerry MD [address] [place] [address] Social History Tobacco Use Types Packs/Day Years Used Date Smoking Tobacco: Never Assessed Comments Unknown Sex and Gender Information Value Date Recorded Sex Assigned at Female 04/19/2022 6:34 PM CDT Legal Sex Female 6:34 PM CDT Gender Identity Female 04/19/2022 6:34 PM CDT Sexual Orientation Not on file documented as of this encounter Miscellaneous Notes * Cerner Conversion Note - Merry ProviderMD - 12/15/2019 3:45 AM STATISTICAL [place] [address] KERENSANDRA :1995 Visit Time:12/14/2019 Your Visit Summary Your Care Team Primary Provider: JAMES CARRANZA Secondary Provider: Your Diagnosis Abscess - simple Gingival abscess Gingivitis Oral cavity pain Oral lesion Tooth pain Medical Information You may obtain a copy of your Emergency Department visit from Medical Records by calling the hospital phone number listed above and asking to be directed to the Medical Records Department. If you had special tests, such as EKG???s or X-rays, the interpretation of your tests given to you by the Emergency Department Physician is a preliminary report. Some fractures and illnesses fail to show up on preliminary tests. These will be reviewed again and we will call you if there are any new suggestions. If your symptoms continue notify your physician. After you leave, you should follow the instructions provided. What to do next Follow-Up Appointments Follow Up with CASPER AMADOR When In 2 days 12/16/2019 EST Follow Up with [facility] General Dentistry When Within 2 to 3 days Where: [facility] [address] [place] [address]- Business (1) Follow Up with JESSI (REF) BELÉN When Within 2 to 3 days Where: [address] [place] [address]- [facility] (1) Allergies No Known Allergies Immunizations This Visit No Immunizations Found Medications What How Much When Instructions Next Dose New acetaminophen-hydrocodone ([place] 5 mg-325 mg oral tablet) 1 Tablet(s) Oral Three Times A Day as needed for for pain Duration: 2 Day(s) Printed Prescription New metroNIDAZOLE (Flagyl 250 mg oral tablet) 1 Tablet(s) Oral Every 8 Hours Duration: 7 Day(s) Printed Prescription The home medications listed are only as accurate as the information you provided. Please continue taking all of your medications prescribed by your Primary Care Provider unless specifically told to change or discontinue the medication. Please direct any questions regarding your home medications to your Primary Care Provider. Take your medications faithfully. Do NOT skip medication. Do NOT stop taking medications without the direction of a physician. Carry a list of your medications with you at all times, and take this medication list with you to your first follow up visit. Report any side effects. Avoid herbal remedies unless discussed with your physician. As part of your treatment plan, your physician may have prescribed a limited course of a controlled substance. This medication may be given to help people with moderate or severe pain or for other medical conditions, but there are risks involved with treatment. Common side effects may include nausea, constipation, drowsiness, sweating, itching, dry mouth, and rash. More serious side effects may include cognitive and motor impairment, like problems with thinking, concentrating, alertness, and movement (e.g. slowed reflexes), and driving and operating heavy machinery can be dangerous. It is important for you to talk to your physician if you have these side effects or questions. These controlled substances can produce physical dependence and be habit-forming if taken for an extended period of time, which means that the body has gotten used to them and may experience withdrawal symptoms if they are abruptly stopped. Withdrawal symptoms can include runny nose, sweating, goose bumps, diarrhea, abdominal cramping, rapid heartbeat, difficulty sleeping, and nervousness. Please dispose of unused and medications per pharmacy guidance. Test Results Laboratory or Other Results This Visit (last charted value for your 12/14/2019 visit) No Laboratory or Other Results This Visit [employer] Cellulitis, Adult Cellulitis is a skin infection. The infected area is usually red and sore. This condition occurs most often in the arms and lower legs. It is very important to get treated for this condition. Follow these instructions at home: ??? Take nxee-hjx-lstsone and prescription medicines only as told by your doctor. ??? If you were prescribed an antibiotic medicine, take it as told by your doctor. Do not stop taking the antibiotic even if you start to feel better. ??? Drink enough fluid to keep your pee (urine) pale yellow. ??? Do not touch or rub the infected area. ??? Raise (elevate) the infected area above the level of your heart while you are sitting or lying down. ??? Place warm or cold wet cloths (warm or cold compresses) on the infected area. Do this as told by your doctor. ??? Keep all follow-up visits as told by your doctor. This is important. These visits let your doctor make sure your infection is not getting worse. Contact a doctor if: ??? You have a fever. ??? Your symptoms do not get better after 1???2 days of treatment. ??? Your bone or joint under the infected area starts to hurt after the skin has healed. ??? Your infection comes back. This can happen in the same area or another area. ??? You have a swollen bump in the infected area. ??? You have new symptoms. ??? You feel ill and also have muscle aches and pains. Get help right away if: ??? Your symptoms get worse. ??? You feel very sleepy. ??? You throw up (vomit) or have watery poop (diarrhea) for a long time. ??? There are red streaks coming from the infected area. ??? Your red area gets larger. ??? Your red area turns darker. This information is not intended to replace advice given to you by your health care provider. Make sure you discuss any questions you have with your health care provider. Document Released: 03/27/2009 Document Revised: 05/28/2018 Document Reviewed: 08/17/2016 [employer] Interactive Patient Education ?? 2019 [employer] Dental Abscess A dental abscess is an area of pus in or around a tooth. It comes from an infection. It can cause pain and other symptoms. Treatment will help with symptoms and prevent the infection from spreading. Follow these instructions at home: Medicines ??? Take fhyp-vkl-bcmeznr and prescription medicines only as told by your dentist. ??? If you were prescribed an antibiotic medicine, take it as told by your dentist. Do not stop taking it even if you start to feel better. ??? If you were prescribed a gel that has numbing medicine in it, use it exactly as told. ??? Do not drive or use heavy machinery (like a home weatherizing worker) while taking prescription pain medicine. General instructions ??? Rinse out your mouth often with salt water. ? To make salt water, dissolve ?1 tsp of salt in 1 cup of warm water. ??? Eat a soft diet while your mouth is healing. ??? Drink enough fluid to keep your urine pale yellow. ??? Do not apply heat to the outside of your mouth. ??? Do not use any products that contain nicotine or tobacco. These include cigarettes and e-cigarettes. If you need help quitting, ask your doctor. ??? Keep all follow-up visits as told by your dentist. This is important. Prevent an abscess ??? [place] your teeth every morning and every night. Use fluoride toothpaste. ??? Floss your teeth each day. ??? Get dental cleanings as often as told by your dentist. ??? Think about getting dental sealant put on teeth that have deep holes (decay). ??? Drink water that has fluoride in it. ? Most tap water has fluoride. ? Check the label on bottled water to see if it has fluoride in it. ??? Drink water instead of sugary drinks. ??? Eat healthy meals and snacks. ??? Wear a mouth guard or face shield when you play sports. Contact a doctor if: ??? Your pain is worse, and medicine does not help. Get help right away if: ??? You have a fever or chills. ??? Your symptoms suddenly get worse. ??? You have a very bad headache. ??? You have problems breathing or swallowing. ??? You have trouble opening your mouth. ??? You have swelling in your neck or close to your eye. Summary ??? A dental abscess is an area of pus in or around a tooth. It is caused by an infection. ??? Treatment will help with symptoms and prevent the infection from spreading. ??? Take dkmb-ulm-mmqjjin and prescription medicines only as told by your dentist. ??? To prevent an abscess, take good care of your teeth. [place] your teeth every morning and night. Use floss every day. ??? Get dental cleanings as often as told by your dentist. This information is not intended to replace advice given to you by your health care provider. Make sure you discuss any questions you have with your health care provider. Document Released: 02/23/2016 Document Revised: 06/11/2018 Document Reviewed: 06/11/2018 [employer] Interactive Patient Education ?? 2019 [employer]. Emergency Awareness and Preventative Care STROKE is an EMERGENCY Every Minute Counts Act FAST and Check for these signs: FACE Does the face look uneven? ARM Does one arm drift down? SPEECH Does their speech sound strange? TIME Call at any sign of stroke Stroke Risk Factors Atrial Fibrillation (irregular heartbeat) Diabetes Family history of stroke Heart Disease Heavy alcohol use High Blood Pressure High Cholesterol Physical inactivity and obesity Smoking Cigarette Smoking The facts are clear, cigarette smoking will shorten your life. Smoking can cause many illnesses along the way. As a healthcare provider, we recommend that you stop smoking. Assistance with quitting is available by contacting 2-347-SMWB-NOW. This is a free resource providing counseling, support, and referral. Or you may contact your personal physician. National Suicide Prevention Lifeline: The National Suicide Prevention Lifeline is a national network of local crisis centers that provides free and confidential emotional support to people in suicidal crisis or emotional distress 24 hours a day, 7 days a week. Don't Wait! Stop a Heart Attack Before it Starts What is a heart attack? A heart attack is damage or to a part of the heart from severely decreased or lack of blood flow to the heart. Over time, arteries can become narrow from the buildup of fat and cholesterol, which is called plaque. The plaque can rupture causing a blood clot to form. When the blood clot forms, the artery can become severely narrowed or completely blocked, causing a heart attack. Heart attack is the leading cause of in the [place]. 85% of muscle damage occurs within the first 2 hours. Delay in the recognition of heart attack symptoms increases the chances of . Know the early symptoms of a heart attack: Nausea Feeling of fullness in chest Jaw Pain Pain that travels down one or both arms Fatigue/being tired Anxiety Back Pain Chest pressure, squeezing, or discomfort Shortness of breath Sweating, or a cold sweat Feeling of impending doom There are unusual signs of a heart attack, too! Women, the elderly, and diabetics may present with atypical symptoms: Fainting/dizziness Weakness Confusion Risk Factors for a Heart Attack Some heart disease risk factors, such as age and family history, cannot be changed. Others, like smoking and lack of exercise, can be changed. Smoking High Cholesterol High Blood Pressure Family History Obesity Age Gender (Males are at higher risk) Lack of Exercise Diabetes Diet Stress Excessive Alcohol Intake If you or someone you know is experiencing the signs and symptoms of a heart attack, DON???T DELAY. Call immediately and seek help. If someone collapses, perform CPR! Do not attempt to drive if you are having symptoms of heart attack. Hands-Only CPR Why Hands-Only CPR? Hands-Only CPR has been shown to be as effective as conventional CPR for cardiac arrests that occur outside of a hospital. Survival depends on immediately receiving CPR from someone nearby. How do you perform Hands-Only CPR? There are two easy steps: Call if you see a teen or adult collapse Push hard and fast in the center of the chest at a beat of 100 beats per minute. Save a life! 4 WAYS TO GET AHEAD OF SEPSIS SEPSIS is a MEDICAL EMERGENCY. Time matters! Infections put you and your family at risk for a life-threatening condition called sepsis. Sepsis is the body's extreme response to an infection. It is life-threatening, and without timely treatment, sepsis can rapidly lead to tissue damage, organ failure, and . Sepsis happens when an infection you already have-in your skin, lungs, urinary tract or somewhere else-triggers a chain reaction throughout your body. 1 PREVENT INFECTIONS Take good care of chronic conditions. Talk to your doctor about getting the recommended vaccines. 2 PRACTICE GOOD HYGIENE Wash your hands frequently. Keep cuts or open sores clean and covered until they are healed. 3 KNOW THE SYMPTOMS Confusion or disorientation Shortness of breath High heart rate Fever, shivering, or feeling very cold Extreme pain or discomfort Clammy or sweaty skin 4 ACT FAST Get medical care IMMEDIATELY if you suspect sepsis or if you have an infection that is not getting better or is getting worse. To learn more about sepsis and how to prevent infections, visit www.cdc.gov/sepsis. The examination and treatment you have received in the Emergency Department has been done to provide an appropriate evaluation and stabilizing treatment on an emergency basis only. Given the limited resources, it is not meant to be a substitute for complete medical care. The follow-up doctor you named will receive a copy of your records and all test reports. IT IS IMPORTANT THAT YOU SCHEDULE A FOLLOW-UP APPOINTMENT AND ARE RE-EVALUATED. You should report any new complaints, symptoms, or remaining problems at that time. IT IS IMPOSSIBLE FOR THE EMERGENCY DEPARTMENT TO RECOGNIZE AND TREAT ALL ELEMENTS OF INJURY OR ILLNESS IN A SINGLE VISIT. If you have been referred to a specialist physician, it means that we believe you may have a condition that requires the expertise of a specialist. These physicians work in partnership with the hospital and have agreed to see referred patients in their office for further evaluation. KEEP IN MIND THAT THE SPECIALIST HAS HIS/HER OWN OFFICE POLICIES WHICH MAY REQUIRE PROPER INSURANCE OR PAYMENT UP FRONT BEFORE THE SPECIALIST WILL SEE YOU. It is your responsibility to call the specialist physician to make an appointment. We do not have the ability to refer patients to specialists/physicians that work with specific insurance companies. Please be advised that all financial charges or billing practices are determined by that practice, not the hospital. If your insurance company requires that you see a specialist from their approved list, it is your responsibility to contact your insurance company to make those arrangements. It is also your responsibility to follow any other requirements of your insurance company necessary to obtain coverage for claims submitted. We will bill your insurance; however, you are responsible today for any co-pay amounts. You will receive a separate bill for any services you may have received including: emergency, radiology, or pathology physicians. Patient Name:SANDRA SOL EBENEZER I have received this information and was given the opportunity to ask questions. Patient/Rn First Assistant Name: Patient/Rn First Assistant Signature: Relationship to Patient: Clinician/Hospital Rn First Assistant Signature: Please Provide a Telephone Number Where You Can Be Reached: Is it Permissible To Leave a Message? Date: documented in this encounter Plan of Treatment Not on file documented as of this encounter Visit Diagnoses Not on filedocumented in this encounter
--- OUTSIDE RECORDS SUMMARY | 2025-04-01 12:29 | XMS_ITS | Clinical Summary ---
Author Organization [facility] Address [address] [place] [address] Care Team Providers Care Academic Coach Name Role Phone Kyle Fonseca MD Primary Care Provider [phone] Allergies Active Allergy Reactions Criticality Noted Date Comments Shrimp Flavor Agent (Non-Screening) Swelling High 02/17/2025 Medications ibuprofen 600 MG tablet 01/08/2025 Active Active Problems Problem Noted Date Diagnosed Date Encounter for IUD insertion 01/20/2025 Assessment & Plan (01/20/2025 12:01 PM EDT): Orders: IUD Management Missed with d emise before 20 completed weeks of gestation 01/06/2025 Assessment & Plan (01/20/2025 12:01 PM EDT): Assessment & Plan (01/13/2025 11:34 AM EDT): 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, antepartum 01/06/2025 Assessment & Plan (01/20/2025 12:01 PM EDT): Assessment & Plan (01/13/2025 11:34 AM EDT): Orders: Ambulatory referral to Perinatology; Future Factor V Leiden and Prothrombin Mutation by PCR Protein C Activity Protein S Activity Antithrombin III Annual physical exam 06/17/2024 PCOS (polycystic ovarian syndrome) 07/19/2021 Assessment & Plan (05/23/2022 4:18 PM EDT): - will add metformin 1000 mg daily - discussed main side effects are GI distress Assessment & Plan (07/19/2021 11:11 AM EDT): - We discussed the 3 main treatment goals for PCOS. 1. Oligomenorrhea, infertility 2. Screening for metabolic syndrome 3. Chronic anovulation potentially leading to endometrial hyperplasia or cancer. - Currently trying to conceive. We discussed progesterone, letrozole for infertility - she would like to think about it and call us if she decides she would like to proceed. - We discussed that she will need regularly screening visits for diabetes, HTN, lipids. Normal HbA1c last visit. - We discussed the need for hormonal/menstrual regulation to help protect from endometrial hyperplasia or cancer. We discussed different options of this including OCPS, depo, nexplanon, or IUD. - RTC as needed. Oligomenorrhea 07/15/2021 Assessment & Plan (07/15/2021 9:12 AM EDT): - We discussed that PCOS is a clinic diagnosis based on the [place] Criteria and that there are 3 clinical signs for diagnosis; oligomenorrhea, increased testosterone signs, and characteristic appearance of ovaries on ultrasound. She does have oligomenorrhea; so we discussed scheduling an ultrasound to evaluate the ovaries. - We discussed PCOS revolves around insulin resistance. TSH and HbA1c today. - Will return for ultrasound. - We discussed that we can start progesterone to help her have a period and an ovulation induction agent after her ultrasound if she would like. Resolved Problems Problem Noted Date Diagnosed Date Resolved Date 16 weeks gestation of 01/06/2025 01/13/2025 12 weeks gestation of 11/13/2024 01/06/2025 Vaginal bleeding affecting early 11/13/2024 12/13/2024 state, incidental 06/19/2024 0 12/13/2024 Encounter for test, result positive 06/17/20 24 06/19/2024 Encounter for routine follow-up 05/10/2023 06/17/2024 Assessment & Plan (05/10/2023 3:51 PM EDT): Patient presents to clinic for post- visit. Baby delivered vaginally on 04/29/23. Patient is doing well. Pumping exclusively with no problems. Minimal bleeding. Denies any mood complications. Bonding well with baby. Overall has no concerns. It is discussed that patient should schedule a 6-week post visit. Can discuss control options at this time. Patient asks if she needs to be put on control, discussed that it is not necessary. Patient is okay with plan. Will need pap. state, incidental 09/30/2022 0 06/17/2024 Assessment & Plan (04/27/2023 9:16 AM EDT): - labs reviewed, GBS negative - continue PNV - anticipate - labor precautions discussed - RTC 1 week for NST Assessment & Plan (04/20/2023 9:17 AM EDT): - labs reviewed, GBS negative - continue PNV - anticipate - labor precautions discussed - RTC 1 week Assessment & Plan (04/13/2023 8:33 AM EDT): - labs reviewed, GBS negative - continue PNV - anticipate - labor precautions discussed - RTC 1 week Assessment & Plan (04/06/2023 8:18 AM EDT): - labs reviewed - GBS today - continue PNV - anticipate - RTC 1 week Assessment & Plan (03/30/2023 8:20 AM EDT): - labs reviewed - continue PNV - anticipate , GBS at 36 weeks - RTC 1 week Assessment & Plan (03/16/2023 9:15 AM EDT): - labs reviewed - prelim growth US: vertex, fundal plac, EFW 61%, AC 79%, normal dopplers and MONTRELL, BPP 05/30 - continue PNV - anticipate , GBS at 36 weeks - RTC 2 weeks Assessment & Plan (03/01/2023 4:09 PM EDT): - labs reviewed - continue PNV - growth US scheduled - RTC 2 weeks Assessment & Plan (02/15/2023 3:29 PM EDT): - labs reviewed, glucola normal - Tdap today - continue PNV - growth US ordered for 4 weeks - RTC 2 weeks Assessment & Plan (01/18/2023 4:43 PM EDT): - labs reviewed, aide US normal - glucola today - continue PNV - discussed Tdap for next visit - RTC 4 weeks Assessment & Plan (12/21/2022 3:18 PM EST): - labs reviewed - prelim aide US normal today - continue PNV - discussed glucola at next visit - RTC 4 weeks Assessment & Plan (11/25/2022 4:04 PM EST): - labs reviewed, NIPT low risk female - continue PNV - discussed 1 week visit to [facility] for depression - UA negative, discussed round ligament pain - aide US scheduled - RTC 4 weeks Assessment & Plan (10/26/2022 4:52 PM EST): - labs reviewed - normal NT today - NIPT and FTS lab work done - continue PNV - aide US ordered - RTC 4 weeks Assessment & Plan (09/30/2022 11:30 AM EST): - labs today - pap 07/2020 normal - repeat - US shows viable SIUP, CRL c/w LMP, keep CHANDLER 05/04/22 - desires genetic screening - FTS US ordered, desire NIPT - continue PNV - new OB backpack given - RTC 4 weeks Infertility management 05/23/202203/01 Assessment & Plan (05/23/2022 4:18 PM EDT): - We discussed that the 3 main causes of infertility are anovulation, semen abnormalities, and tubal factor. - Partner needs semen analysis. Dr. Parsons contact information provided. We discussed that we could perform SA now or wait to see if letrozole is not successful. - normal [employer] ultrasound - Will try Letrozole 2.5 mg on days 3-7 of cycle, timed intercourse, and will come in for 21 day progesterone. 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, antepartum; Encounter for IUD insertion 01/20/2025 Travel 01/17/2025 Results Follow-Up Obstetrics & Gynecology [address] [place] [address] Blanca Graves MD 01/15/2025 Travel 01/13/2025 11:15 AM EDT Clinical Support Obstetrics & Gynecology [address] [place] [address] 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, antepartum (Primary Dx) 01/13/2025 10:45 AM EDT Office Visit Obstetrics & Gynecology [address] [place] [address] Blanca Graves MD 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, antepartum (Primary Dx); Missed with demise before 20 completed weeks of gestation 01/13/2025 Travel 01/07/2025 Orders Only External Location [address] [place] [address] Blanca Graves MD 01/06/2025 1:45 PM EDT Routine Obstetrics & Gynecology [address] [place] [address] Blanca Graves MD 16 weeks gestation of (Primary Dx); 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, antepartum; Missed with demise before 20 completed weeks of gestation 01/06/2025 1:28 PM EDT - 01/06/2025 11:59 PM EDT Hospital Encounter [facility] [address] [place] [address] 16 weeks gestation of Discharge Disposition: Home or Self Care 01/06/2025 Travel 01/06/2025 Telephone Obstetrics & Gynecology [address] [place] [address] Blanca Graves MD [facility] - Patient Message from Last 3 Months Immunizations Immunization Administration Dates Next Due Influenza, seasonal, injectable, preservative fr ee 07/24/2024,07/29/2016 Tdap 02/15/2023,08/17/2016 Family History Medical History Relation Name Comments Alcohol abuse Father Efra Diabetes Father Efra Arthritis Maternal Grandmother Beti Diabetes Maternal Grandmother Beti Relation Name Status Comments Father Efra Alive Maternal Grandmother Beti Alive Social History Tobacco Use Types Packs/Day Years [...] How often do you attend chur or roman catholic services? Never 02/17/2025 Do you belong to any clubs o r organizations such as islam groups, unions, fraternal or athletic groups, or [...] Recorded Patient Health Questionnaire-2 Score 0 01/20/2025 [facility] - Occupational Stress [...] things needed for daily living? No 02/17/2025 York Depression Scale Answer Date Recorded York Depression Scale Total 0 06/15/2023 The thought [...] any time in the past 12 [facility], were you homeless or living in a long-term (including now)? No 02/17/2025 Utilities Answer Date [...] on file Sexual Orientation Not on file Last Filed Vital Signs Vital Sign Reading [...] Mass Index 38.5 02/17/2025 11:11 AM EDT Plan of Treatment Health Maintenance Due Date Last Done Comments [facility]-/Child/Adol SDOH Screenings 1996 [facility]-Varicella Vaccines (1 of 2 - 13+ 2-dose series) 01/09/2009 HPV Vaccines (1 - 3-dose series) 01/09/2011 [facility]-Hepatitis B Vaccines (1 of 3 - 19+ 3-dose series) 01/09/2015 [facility]-Pneumococcal Vaccine: Pediatrics (0 to 5 Years) and At-Risk Patients (6 to 49 Years) (1 of 2 - PCV) 01/09/2015 [id number] Vaccine (1 - season) 2024 [facility]- SDOH Screenings 08/19/2025 [facility]-Adult SDOH Screenings 08/19/2025 02/17/2025 [facility]-Depression Screening 01/20/2026 025, 01/20/2025, 06/15/2023 [facility]-Pap Smear 06/15/2026 06/15/2023 [facility]-DTaP,Tdap,and Td Vaccines (3 - Td or Tdap) 02/15/2033 02/15/2023, 08/17/2016 [facility]-Zoster Vaccines (1 of 2) 01/09/2046 [facility]-Influenza Vaccine Completed 07/24/2024 , 12/16/2023, 07/29/2016 [facility]-HIV Screening Completed 11/01/2024, , 09/30/2022, Additional history exists [facility]-Hepatitis C Screening Completed 2024, 06/19/2024, 09/30/2022, Additional history exists [facility]-Obesity Intervention Completed 025, 01/20/2025, 01/13/2025, Additional history exists [facility]-HIB Vaccines Aged Out No longer e ligible based on patient's age to complete this topic [facility]-Hepatitis A Vaccines Aged Out No longer eligible based on patient's age to complete this topic [facility]-IPV Vaccines Aged Out No longer e ligible based on patient's age to complete this topic [facility]-Rotavirus Vaccines Aged Out No lo nger eligible based on patient's age to complete this topic Goals Goal Patient Goal Type Associated Problems Recent Progress Patient-Stated? 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, antepartum FACTOR V LEIDEN AND PROTHROMBIN MUTATION BY PCR Routine 01/13/2025 11:20 AM EDT 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, antepartum TYPE AND SCREEN Routine 01/07/2025 9:22 AM EDT CBC W/O DIFFERENTIAL Routine 01/07/2025 9:22 AM EDT PARVOVIRUS B19 ANTIBODY, IGG (SO) Routine 01/06/2025 2:07 PM EDT 16 weeks gestation of 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, antepartum PARVOVIRUS B 19 ANTIBODY, IGM (SO) Routine 01/06/2025 2:07 PM EDT 16 weeks gestation of 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, antepartum TSH REFLEX FT4 Routine 01/06/2025 2:07 PM EDT 16 weeks gestation of 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, antepartum HEMOGLOBIN A1C Routine 01/06/2025 2:07 PM EDT 16 weeks gestation of 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, antepartum ANTICARDIOLIPIN Routine 01/06/2025 2:07 PM EDT 16 weeks gestation of 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, antepartum BETA-2 MICROGLOBULIN, SERUM OR PLASMA (SO) Routine 01/06/2025 2:07 PM EDT 16 weeks gestation of 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, antepartum LUPUS ANTICOAGULANT PROFILE Routine 01/06/2025 2:07 PM EDT 16 weeks gestation of 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, antepartum RUBELLA ANTIBODY IGG Routine 01/06/2025 2:07 PM EDT 16 weeks gestation of 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, antepartum VARICELLA-ZOSTER VIRUS ANTIBODY, IGM (SO) Routine 01/06/2025 2:07 PM EDT 16 weeks gestation of 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, antepartum VARICELLA ZOSTER ANTIBODY IGG Routine 01/06/2025 2:07 PM EDT 16 weeks gestation of 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, antepartum TREPONEMA PALLIDUM (SYPHILIS) ANTIBODIES WITH REFLEX TO RPR AND RPR TITER (THOSE WITH NO KNOWN SYPHILIS) Routine 01/06/2025 2:07 PM EDT 16 weeks gestation of 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, antepartum TOXOPLASMA GONDII ANTIBODY, IGG (SO) Routine 01/06/2025 2:07 PM EDT 16 weeks gestation of 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, antepartum CYTOMEGALOVIRUS ANTIBODY, IGM (SO) Routine 01/06/2025 2:07 PM EDT 16 weeks gestation of 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, antepartum CYTOMEGALOVIRUS ANTIBODY, IGG Routine 01/06/2025 2:07 PM EDT 16 weeks gestation of 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, antepartum HERPES SIMPLEX TYPE 1 AND TYPE 2 GLYCOPROTEIN G-SPECIFIC ANTIBODIES, IGG (SO) Routine 01/06/2025 2:07 PM EDT 16 weeks gestation of 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, antepartum OB US LIMITED Routine 01/06/2025 2:01 PM EDT 16 weeks gestation of POCT URINALYSIS DIPSTICK Routine 01/06/2025 1:31 PM EDT 16 weeks gestation of URINE CULTURE Routine 01/06/2025 1:30 PM EDT 16 weeks gestation of HEPATITIS C ANTIBODY W/REFLEX TO HCV QUANT PCR Routine 11/01/2024 10:31 AM EST state, incidental HIV 1/2 ANTIBODY/ANTIGEN SCREEN WITH REFLEX TO HIV I/II DIFFERENTIATION Routine 11/01/2024 10:31 AM EST state, incidental PAP TEST - CYTOLOGY Routine 06/15/2023 1 1:28 AM EDT Smear, vaginal, as part of routine gynecological examination from Last 3 Months or Most Recently Relevant to Health Maintenance Results * CO INSERT INTRAUTERINE DEVICE (01/20/2025 11:00 AM EDT) Narrative Blanca Graves MD - 01/20/2025 11:00 AM EDT Blanca Graves MD 01/20/2025 12:01 PM IUD Management Performed by: Blanca Graves MD Authorized by: Blanca Graves MD Procedure: IUD insertion Consent obtained by patient, parent, or legal power of state attorney - including discussion of procedure risks and benefits, patient questions answered, and patient education provided: yes risk: reasonably certain the patient is not Date/Time of Insertion: 01/20/2025 11:58 AM Immediately prior to procedure a time out was called: yes Speculum placed in vagina: yes Cervix cleaned and prepped: yes Tenaculum/Allis/Ring Forceps applied to cervix: yes Anesthesia used: no Uterus sound depth (cm): 9 Cervix manually dilated: no IUD inserted without complications: yes OSM: 1 each levonorgestrel 20 MCG/DAY Strings trimmed to (cm): 4 Patient tolerated procedure well: yes Inserted with ultrasound guidance: no Transvaginal sono confirmed fundal placement: no Estimated blood loss (mL): 0 Intended removal date: 8 years us Blanca Graves MD IN CLINIC/BEDSIDE ORDERA BLES Final Result * Factor V Leiden and Prothrombin Mutation by PCR (01/13/2025 11:20 AM EDT) Interpretation F5 c.1601G>A (formerly known as Factor V Leiden): Negative F2 c.*97G>A (formerly known as Prothrombin [id number]): Negative This patient is unlikely to have an increased risk of venous thrombosis related to these two genetic variants. Venous thrombosis is a relatively common disorder and the genetic causes are largely unknown. These results are unlikely to significantly reduce the venous thrombosis risk derived from clinical and family history. Variant Description: 1. Coagulation factor V gene (F5): [id number], chr1: g.[id number]>T (hg38), c.1601G>A (NM_000130.4), p.Znt553Urv (NP_000121.2), 2. Coagulation factor II (F2): [id number], chr11: g.04132731L>A (hg38), c.*97G>A(NM_000506 .4) 01/16/2025 7:10 PM EDT [facility] Methodology Polymerase chain reaction (PCR) was used to amplify the target regions of the F5 gene and the F2 gene, followed by allelic discrimination with Taqman probes. This test is designed for the detection of the two variants listed above, other variants will not be detected. 01/16/2025 7:10 PM EDT [facility] References 1. Yordan CELESTE. Factor V Leiden Thrombophilia. 2009Dec 29. Hoang 2. Yordan CELESTE. Prothrombin-Relate d Thrombophilia. 2013Jun 05 Hoang 01/16/2025 7:10 PM EDT [facility] Disclaimer This test was developed and its performance characteristics determined by the Clinical Molecular and Genomic Pathology Laboratory at the [facility]. It has not been cleared or approved by the U.S. Food and Drug Administration. This test does not require FDA approval. This test is used for clinical purposes. It should not be regarded as investigational or for research. This laboratory is certified under the Clinical laboratory Improvement Amendments of 1988 (CLIA-88) as qualified to perform high complexity clinical laboratory testing. 01/16/2025 7:10 PM EDT [facility] Blood Venous blood specimen / Unknown Venipuncture / Unknown 01/13/2025 11:20 AM EDT 01/13/2025 1:00 PM EDT us Blanca Graves MD LAB MOLECULAR DIAGNOSTIC S ORDERABLES Final Result [facility] [address] [place] [address], * Protein S Activity (01/13/2025 11:20 AM EDT) Protein S Activity 97 57 - 143 % LAB COAGULATION METHOD 01/17/2025 3:10 AM EDT [facility] Blood Venous blood specimen / Unknown Venipuncture / Unknown 01/13/2025 11:20 AM EDT 01/13/2025 1:05 PM EDT Narrative [facility] - 01/17/2025 3:10 AM EDT Coagulation proteins produced in liver, especially the vitamin K dependent ones (FII, FVII, FIX, FX, Protein C and Protein S) are normally decreased in newborns, increasing to adult levels over the first six months. Those produced in endothelium (FVIII, vWF) approximate adult levels throughout development. us Blanca Graves MD LAB BLOOD ORDERABLES Fin al Result Performing Organization Address City/[facility]/ZIP Co de Phone Number [facility] [address] [place] [address] * Protein C Activity (01/13/2025 11:20 AM EDT) Pathologist [facility] Protein C 122 83 - 168 % LAB COAGULATION METHOD 01/17/2025 2:37 AM EDT [facility] Blood Venous blood specimen / Unknown Venipuncture / Unknown 01/13/2025 11:20 AM EDT 01/13/2025 1:05 PM EDT Narrative [facility] - 01/17/2025 2:37 AM EDT Coagulation proteins produced in liver, especially the vitamin K dependent ones (FII, FVII, FIX, FX, Protein C and Protein S) are normally decreased in newborns, increasing to adult levels over the first six months. Those produced in endothelium (FVIII, vWF) approximate adult levels throughout development. Low levels of protein C are expected in liver disease and during coumadin therapy. us Blanca Graves MD LAB BLOOD ORDERABLES Fin al Result Performing Organization Address [facility]/ZIP Co de Phone Number [facility] [address] [place] [address] * Antithrombin III (01/13/2025 11:20 AM EDT) [facility] Antithrombin III 100 90 - 133 % LAB COAGULATION METHOD 01/13/2025 1:36 PM EDT [facility] Blood Venous blood specimen / Unknown Venipuncture / Unknown 01/13/2025 11:20 AM EDT 01/13/2025 1:05 PM EDT us Blanca Graves MD LAB BLOOD ORDERABLES Fin al Result Performing Organization Address City/[facility]/ZIP Co de Phone Number [facility] [address] [place] [address] * (ABNORMAL) CBC W/O Differential (01/07/2025 9:22 AM EDT) Pathologist [facility] External WBC 7.8 4.0 - 10.5 K/ul [facility] External Red Blood Cell (RBC) 4.0(L) 4.2 - 6.4 M/mm3 [facility] External Hemoglobin 11.9(L) 12.5 - 16.0 gm/dl [facility] External Hematocrit 35.6(L) 37.0 - 47.0 % [facility] External MCV 89.0 78 - 100 fl [facility] External MCH 29.8 27 - 31 pg [facility] External MCHC 33.4 32 - 36 g/dl [facility] External RDW 13.9 11.5 - 14.0 % [facility] External Platelets 308 150 - 450 K/ul [facility] External MPV 9.5 6 - 9.5 fl [facility] External Manual Differential NO [facility] 01/07/2025 9:22 AM EDT 01/07/2025 10:20 AM EDT us Blanca Graves MD LAB BLOOD ORDERABLES Fin al Result [facility] * Type and Screen (01/07/2025 9:22 AM EDT) External History Check Completed [facility] Comment:HISTORY IN V.3 External ABO/Rh O POSITIVE [facility] External Antibody Screen NEGATIVE [facility] External Status Information Completed [facility] 01/07/2025 9:22 AM EDT 01/07/2025 9:04 AM EDT us Blanca Graves MD LAB BLOOD BANK TEST ORDE RABLES Final Result [facility] * Beta-2 Microglobulin, Serum or Plasma (SO) (01/06/2025 2:07 PM EDT) [facility] Beta-2 Microglobulin, Serum or Plasma 1.3 0.8 - 2.4 mg/L 01/09/2025 7:[address] [facility] Blood Venous blood specimen / Unknown Venipuncture / Unknown 01/06/2025 2:07 PM EDT 01/06/2025 6:04 PM EDT Narrative [facility]) - 01/09/2025 7:23 AM EDT Performed By: [facility] [address] [place] [address] Career Development Manager: Pravin Pickett MD, PhD CLIA Number: [id number] us Blanca Graves MD LAB REF LAB BLOOD AND FL UID ORD Final Result Performing Organization Address City/[facility]/ZIP Co de Phone Number [facility]) [address] [place] [phone] * TSH Reflex FT4 (01/06/2025 2:07 PM EDT) [facility] Thyroid Stimulating Hormone, Plasma 1.06 0.40 - 4.20 uIU/mL 01/06/2025 6:42 PM EDT [facility] Blood Venous blood specimen / Unknown Venipuncture / Unknown 01/06/2025 2:07 PM EDT 01/06/2025 6:04 PM EDT Narrative [facility] - 01/06/2025 6:42 PM EDT Trimester Specific Ranges TSH ( IU/mL) 1st Trimester 0.1 - 3.0 2nd Trimester 0.19 - 4.06 3rd Trimester 0.3 - 3.7 us Blanca Graves MD LAB BLOOD ORDERABLES Fin al Result [facility] [address] [place] [address] * Treponema Pallidum (Syphilis) Antibodies with Reflex to RPR and RPR Titer (Those with NO known Syphilis) (01/06/2025 2:07 PM EDT) [facility] Syphilis Antibody (IgG+IgM) Nonreactive Nonreactive 01/06/2025 7:09 PM EDT [facility] Comment:Nonreactive. No sero logic evidence of syphilis. No follow-up necessary unless clinically indicated (e.g., early syphilis). Blood Venous blood specimen / Unknown Venipuncture / Unknown 01/06/2025 2:07 PM EDT 01/06/2025 6:04 PM EDT us Blanca Graves MD LAB BLOOD ORDERABLES Fin al Result [facility] [address] [place] [address] * Parvovirus B 19 Antibody, IgM (01/06/2025 2:07 PM EDT) Pathologist [facility] Parvovirus B19 Antibody IgM 0.37 <=0.89 IV 01/09/2025 4:18 PM EDT [facility] ([employer]) Serum Venous blood specimen / Unknown 01/06/2025 2:07 PM EDT 01/06/2025 6:04 PM EDT Narrative [facility] ([facility]) - 01/09/2025 4:18 PM EDT INTERPRETIVE INFORMATION: Parvovirus B19 Antibody, IgM 0.89 IV or less .......... Negative - No significant level of detectable Parvovirus B19 IgM antibody. 0.90 - 1.10 IV ........... Equivocal - Repeat testing in 7-21 days may be helpful. 1.11 IV or greater ........ Positive - IgM antibody to Parvovirus B19 detected which may indicate a current or recent infection. However, low levels of IgM antibodies may occasionally persist for more than 12 months post-infection. The best evidence for current infection is a significant change on two appropriately timed specimens, where both tests are done in the same laboratory at the same time. Appearance of an IgM antibody response normally occurs 7 to 14 days after the onset of disease. Testing immediately post-exposure is of no value without a later convalescent specimen. A residual IgM response may be distinguished from early IgM response to infection by testing sera from patients three to four weeks later for changing levels of specific IgM antibodies. Performed By: [facility] [address] [place] [address] Career Development Manager: Pravin Pickett MD, PhD CLIA Number: [id number] Blanca Graves MD LAB BLOOD ORDERABLES Fin al Result [facility] [email or web address] ([employer]) [address] [place] [address] * Herpes Simplex Type 1 and Type 2 Glycoprotein G-Specific Antibodies, IgG (01/06/2025 2:07 PM EDT) HSV 1 Glycoprotien G Ab, IgG 0.52 <=0.89 IV 01/09/2025 1:32 AM EDT [facility] ([employer]) HSV 2 Glycoprotein G Ab, IgG 0.33 <=0.89 IV 01/09/2025 1:32 AM EDT [facility] ([employer]) Blood Venous blood specimen / Unknown Venipuncture / Unknown 01/06/2025 2:07 PM EDT 01/06/2025 6:04 PM EDT Narrative [facility] ([employer]) - 01/09/2025 1:32 AM EDT REFERENCE INTERVAL: HSV 1 Glycoprotein G Ab, IgG 0.89 IV or less ...... Negative - No significant level of detectable IgG antibody to HSV type 1 glycoprotein G. 0.90 - 1.09 IV ....... Equivocal - Questionable presence of IgG antibody to HSV type 1 glycoprotein G. Repeat testing in 10 - 14 days may be helpful. 1.10 IV or greater ... Positive - IgG antibody to HSV type 1 glycoprotein G detected, which may indicate a current or past HSV infection. Individuals infected with HSV may not exhibit detectable IgG antibody to type-specific HSV antigens 1 and 2 in early stages of infection. Detection of antibody presence in these cases may only be possible using a non-type specific screening test. REFERENCE INTERVAL: HSV 2 Glycoprotein G Ab, IgG 0.89 IV or less ....... Negative - No significant level of detectable IgG antibody to HSV type 2 glycoprotein G. 0.90 - 1.09 IV ........ Equivocal - Questionable presence of IgG antibody to HSV type 2 glycoprotein G. Repeat testing in 10 - 14 days may be helpful. 1.10 IV or greater .... Positive - IgG antibody to HSV type 2 glycoprotein G detected, which may indicate a current or past HSV infection. Individuals infected with HSV may not exhibit detectable IgG antibody to type-specific HSV antigens 1 and 2 in early stages of infection. Detection of antibody presence in these cases may only be possible using a non-type specific screening test. Performed By: [facility] [address] [place] [address] Career Development Manager: Pravin Pickett MD, PhD CLIA Number: [id number] us Blanca Graves MD LAB BLOOD ORDERABLES Fin al Result [facility] ([facility]) [address] [place] [id number] * Anticardiolipin IgG and IgM (01/06/2025 2:07 PM EDT) Pathologist [facility] IgG Anticardiolipin <1.60 <20.00 GPL Units/mL 01/06/2025 8:16 PM EDT [facility] Anticardiolipin IgG Interpretation Negative Negative 01/06/2025 8:16 PM EDT [facility] IgM Anticardiolipin <1.50 <20.00 MPL Units/mL 01/06/2025 8:16 PM EDT [facility] Anticardiolipin IgM Interpretation Negative Negative 01/06/2025 8:16 PM EDT [facility] Blood Venous blood specimen / Unknown Venipuncture / Unknown 01/06/2025 2:07 PM EDT 01/06/2025 6:04 PM EDT us Blanca Graves MD LAB BLOOD ORDERABLES Fin al Result [facility] [address] [place] [address] * (ABNORMAL) Parvovirus B19 antibody, IgG (01/06/2025 2:07 PM EDT) PARVOVIRUS B19 IGG 6.09(H) <=0.90 IV 01/09/2025 4:18 PM EDT [facility] [email or web address]) Blood Venous blood specimen / Unknown Venipuncture / Unknown 01/06/2025 2:07 PM EDT 01/06/2025 6:04 PM EDT Carolann [facility] [employer]) - 01/09/2025 4:18 PM EDT INTERPRETIVE INFORMATION: Parvovirus B19 Antibody, IgG 0.90 IV or less .......... Negative - No significant level of detectable Parvovirus B19 IgG antibody. 0.91 - 1.09 IV ........... Equivocal - Repeat testing in 7-21 days may be helpful. 1.10 IV or greater ....... Positive - IgG antibody to Parvovirus B19 detected which may indicate a current or past infection. The best evidence for current infection is a significant change on two appropriately timed specimens, where both tests are done in the same laboratory at the same time. Performed By: [facility] [address] [place] [address] Career Development Manager: Pravin Pickett MD, PhD CLIA Number: [id number] us Blanca Graves MD LAB BLOOD ORDERABLES Fin al Result [facility] [email or web address]) [address] [place] [id number] * CMV IgM (01/06/2025 2:07 PM EDT) CMV ANTIBODY IGM <8.0 <=29.9 AU/mL 01/09/2025 1:37 AM EDT [facility] [email or web address]) Blood Venous blood specimen / Unknown Venipuncture / Unknown 01/06/2025 2:07 PM EDT 01/06/2025 6:04 PM EDT Carolann [facility] [employer] YOUNG) - 01/09/2025 1:37 AM EDT INTERPRETIVE INFORMATION: Cytomegalovirus Antibody, IgM 29.9 AU/mL or Less ....... Not Detected 30.0-34.9 AU/mL........... Indeterminate-Repeat testing in 10-14 days may be helpful. 35.0 AU/mL or Greater .... Detected-IgM antibody to CMV detected which may indicate a current or recent infection. However, low levels of IgM antibodies may occasionally persist for more than 12 months post-infection. A negative result does not rule out primary infection, please correlate clinically. CMV serology is not useful for the evaluation of active or reactivated infection in immunocompromised patients. Molecular diagnostic tests (i.e. PCR)are preferred in these cases. This test should not be used for blood donor screening, associated re-entry protocols, or for screening Human Cell, Tissues and Cellular and Tissue-Based Products (HCT/P). Performed By: [facility] [address] [place] [address] Career Development Manager: Pravin Pickett MD, PhD CLIA Number: [id number] us Blanca Graves MD LAB BLOOD ORDERABLES Fin al Result [employer]) [address] [place] [address] * Toxoplasma gondii antibody, IgG (01/06/2025 2:07 PM EDT) TOXOPLASMA IGG AB <3.0 <=8.8 IU/mL 01/09/2025 2:30 AM EDT [facility]) Blood Venous blood specimen / Unknown Venipuncture / Unknown 01/06/2025 2:07 PM EDT 01/06/2025 6:04 PM EDT Narrative [facility]) - 01/09/2025 2:30 AM EDT INTERPRETIVE INFORMATION: Toxoplasma Ab, IgG 7.1 IU/mL or less....... Not Detected 7.2-8.7 IU/mL .......... Indeterminate-Repeat testing in 10-14 days may be helpful. 8.8 IU/mL or greater ... Detected The best evidence for current infection is a significant change on two appropriately timed specimens, where both tests are done in the same laboratory at the same time. This test should not be used for blood donor screening, associated re-entry protocols, or for screening Human Cell, Tissues and Cellular and Tissue-Based Products (HCT/P). The magnitude of the measured result is not indicative of the amount of antibody present. Performed By: [facility] [address] [place] [address] Career Development Manager: Pravin Pickett MD, PhD CLIA Number: [id number] Blanca Graves MD LAB BLOOD ORDERABLES Fin al Result Performing Organization Address City/[facility] de Phone Number [facility] ([facility]) [address] [place] [address] * Rubella Antibody IgG (01/06/2025 2:07 PM EDT) Pathologist [facility] Rubella Antibody IgG Equivocal Negative 01/06/2025 8:17 PM EDT [facility] Comment: Rubella IgG Result Interpretation: Negative: No IgG antibody specific to the rubella virus detected. Patient is presumed not to have had a previous exposure to rubella through infection or vaccination. Equivocal: Serologic status cannot be determined. Repeat testing in 10-14 days may be helpful. Positive: IgG antibody specific to rubella detected. IgG antibody levels are at a level considered to indicate positive immunity through infection or vaccination. Blood Venous blood specimen / Unknown Venipuncture / Unknown 01/06/2025 2:07 PM EDT 01/06/2025 6:04 PM EDT Blanca Graves MD LAB BLOOD ORDERABLES Fin al Result [facility] [address] [place] [address] * Lupus anticoagulant (01/06/2025 2:07 PM EDT) Lupus Anticoagulant Result Lupus anticoagulant (LA) not detected by either LA-sensitive aPTT or dRVVT assays. If clinical suspicion for antiphospholipid syndrome is high, consider testing for antibodies against cardiolipin and tylv-2-gyhdqrlhgld n I. 01/07/2025 9:59 AM EDT [facility] aPTT Lupus Anticoagulant Sensitive 32.6 <=41.0 sec LAB COAGULATION METHOD 01/07/2025 9:59 AM EDT [facility] DRVVT Screen 33.6 sec LAB COAGULATION METHOD 01/07/2025 9:59 AM EDT [facility] DRVVT Screen Ratio 0.87 <1.20 LAB COAGULATION METHOD 01/07/2025 9:59 AM EDT [facility] Blood Venous blood specimen / Unknown Venipuncture / Unknown 01/06/2025 2:07 PM EDT 01/06/2025 7:54 PM EDT us Blanca Graves MD LAB BLOOD ORDERABLES Fin al Result [facility] [address] [place] [address] * Cytomegalovirus antibody, IgG (01/06/2025 2:07 PM EDT) CMV ANTIBODY IGG <0.20 <=0.70 U/mL 01/09/2025 1:25 AM EDT [facility] ([facility]) Blood Venous blood specimen / Unknown Venipuncture / Unknown 01/06/2025 2:07 PM EDT 01/06/2025 6:04 PM EDT Narrative [facility] ([facility]) - 01/09/2025 1:25 AM EDT INTERPRETIVE INFORMATION: Cytomegalovirus Antibody, IgG 0.59 U/mL or less......... Not Detected 0.6 - 0.69 U/mL........... Indeterminate-Repeat testing in 10-14 days may be helpful. 0.70 U/mL or greater...... Detected In immunocompromised patients, CMV serology (IgG or IgM antibody titers) may not be reliable and may be misleading in the diagnosis of acute or reactivation CMV disease. The preferred method for diagnosis is culture of virus and/or demonstration of viral antigen in peripheral white cells (buffy coat), bronchoalveolar lavage (BAL) cells, or tissue biopsies. This test should not be used for blood donor screening, associated re-entry protocols, or for screening Human Cell, Tissues and Cellular and Tissue-Based Products (HCT/P). The best evidence for current infection is a significant change on two appropriately timed specimens, where both tests are done in the same laboratory at the same time. Performed By: [facility] [address] [place] [address] Career Development Manager: Pravin Pickett MD, PhD CLIA Number: [id number] Blanca Graves MD LAB BLOOD ORDERABLES Fin al Result Performing Organization Address [facility] de Phone Number [facility] ([facility]) [address] [place] [address] * Varicella zoster antibody, IgM (01/06/2025 2:07 PM EDT) [facility] Varicella-Zost er Virus Antibody, IgM 0.88 <=0.90 ISR 01/09/2025 1:03 PM EDT [facility] ([facility]) Blood Venous blood specimen / Unknown Venipuncture / Unknown 01/06/2025 2:07 PM EDT 01/06/2025 6:04 PM EDT Narrative [facility] [employer]) - 01/09/2025 1:03 PM EDT INTERPRETIVE INFORMATION: Varicella-Zoster Virus Antibody, IgM 0.90 ISR or less ........ Negative - No significant level of detectable varicella-zoster virus IgM antibody. 0.91-1.09 ISR ........... Equivocal - Repeat testing in 10-14 days may be helpful. 1.10 ISR or greater ..... Positive - Significant level of detectable varicella-zoster virus IgM antibody. Indicative of current or recent infection. However, low levels of IgM antibodies may occasionally persist for more than 12 months post-infection or immunization. Performed By: [facility] [address] [place] [address] Career Development Manager: Pravin Pickett MD, PhD CLIA Number: [id number] Blanca Graves MD LAB BLOOD ORDERABLES Fin al Result Performing Organization Address [facility] Co de Phone Number [facility] ([facility]) [address] [place] [address] * (ABNORMAL) Varicella zoster antibody, IgG (01/06/2025 2:07 PM EDT) [facility] Varicella Zoster Antibody IgG Positive(A ) Negative 01/06/2025 8:17 PM EDT [facility] Comment: Varicella-zoster IgG Result Interpretation: Negative: No IgG antibody specific to the varicella-zoster virus detected. Patient is presumed not to have had a previous exposure to varicella-zoster through infection or vaccination. Equivocal: Serologic status cannot be determined. Repeat testing in 10-14 days may be helpful. Positive: IgG antibody specific to varicella-zoster detected. This may indicate the patient was exposed to varicella-zoster through infection or vaccination. Blood Venous blood specimen / Unknown Venipuncture / Unknown 01/06/2025 2:07 PM EDT 01/06/2025 6:04 PM EDT Blanca Graves MD LAB BLOOD ORDERABLES Fin al Result Performing Organization Address City/[facility] Co de Phone Number [facility] [address] [place] [address] * Hemoglobin A1c (01/06/2025 2:07 PM EDT) Hemoglobin A1c 5.2 <5.7 % 01/06/2025 6:33 PM EDT [facility] Blood Venous blood specimen / Unknown Venipuncture / Unknown 01/06/2025 2:07 PM EDT 01/06/2025 6:04 PM EDT Narrative [facility] - 01/06/2025 6:33 PM EDT HA1C Interpretive Data: Diagnosis of Diabetes: Diabetic > or = 6.5% Pre-diabetic 5.7 to 6.4% Non-diabetic < or = 5.6% Glycemic Targets for Type I and Type II Diabetics: Non- Adults <7.0% Adults <6.0% Children and Adolescents <7.5% Source: [place] [employer]. Standards of medical care in diabetes,2017. Diabetes Care.2017:40 (suppl 1):S1-S135. HbA1c assay performed by an ion-exchange chromatography method that is certified traceable to the DCCT. Blanca Graves MD LAB BLOOD ORDERABLES Fin al Result Performing Organization Address City/[facility] Co de Phone Number [facility] [address] [place] [address] * OB US Limited (01/06/2025 2:01 PM EDT) Anatomical Region Laterality Modality Pelvis Ultrasound 01/06/2025 1:27 PM EDT Impressions 01/07/2025 10:24 PM EDT The OB Ultrasound you requested has been resulted. Please navigate to the Imaging tab in [employer] for review. This message has been generated by the interface. Narrative Procedure Note Magdiel Clancy MD - 01/07/2025 IMPRESSION: The OB Ultrasound you requested has been resulted. Please navigate to theImaging tab in [employer] for review. This message has been generated by [employer]. Blanca Graves MD IMG OB US PROCEDURES Fin al Result * (ABNORMAL) POCT Urinalysis Dipstick (01/06/2025 1:31 PM EDT) POCT Urine Color Yellow POCT Urine Clarity Clear POCT Glucose Urine Negative Negative mg/dL POCT Bilirubin, Urine Negative Negative POCT Ketones, Urine >=80(A) Negative mg/dL POCT Specific [place], Urine 1.025 POCT Blood, Urine Large(A) Negative POCT pH, Urine 7.0 5.0 to 8.0 POCT Protein, Urine 30(A) Negative mg/dL POCT Urobilinogen, Urine 0.2 0.2, 1 E.U./dL POCT Nitrite, Urine Negative Negative POCT Leukocyte Esterase, Urine Trace(A) Negative Test Strip Lot Number [id number] Test Strip Lot Expiration 01/2025 Urine Urine specimen obtained by clean catch procedure / Unknown 01/06/2025 1:31 PM EDT Blanca Graves MD POINT OF CARE TEST ENTER /EDIT ORDERABLES Final Result * Urine culture (01/06/2025 1:30 PM EDT) Pathologist [facility] Culture No growth at day 1 01/07/2025 1:58 PM EDT [facility] Urine Urine specimen obtained by clean catch procedure / Unknown Non-blood Collection / Unknown 01/06/2025 1:30 PM EDT 01/06/2025 5:59 PM EDT Blanca Graves MD LAB MICROBIOLOGY - GENER AL ORDERABLES Final Result Performing Organization Address City/[facility]/ZIP Co de Phone Number [facility] [address] [place] [address] * HIV 1 & 2 Antibody/Antigen Screen (11/01/2024 10:31 AM EST) HIV 1 & 2 Antibody/Antigen Screen Non Reactive Non Reactive 11/01/2024 1:29 PM EST [facility] Comment:Screening for HIV 1 & 2 antibodies, and P24 antigen is NONREACTIVE. No confirmatory testing is required. Blood Venous blood specimen / Unknown Venipuncture / Unknown 11/01/2024 10:31 AM EST 11/01/2024 12:26 PM EST us Blanca Graves MD LAB BLOOD ORDERABLES Fin al Result Performing Organization Address City/[facility]/ZIP Co de Phone Number [facility] [address] [place] [address] * Hepatitis C Antibody (11/01/2024 10:31 AM EST) Hepatitis C Antibody Negative Negative 11/01/2024 1:29 PM EST [facility] Blood Venous blood specimen / Unknown Venipuncture / Unknown 11/01/2024 10:31 AM EST 11/01/2024 12:26 PM EST Blanca Graves MD LAB BLOOD ORDERABLES Fin al Result [facility] [address] [place] [address] * Pap Test (06/15/2023 11:28 AM EDT) Case Report Cytology Case: [id number] Authorizing Provider: Tadeo Mcdowell MD Collected: 06/15/2023 1128 Ordering Location: Obstetrics & Gynecology Received: 06/16/2023 1031 First Screen: Tammi Villatoro Specimen: ThinPrep Pap Test, Liquid-Based Cervical/Vaginal, CERVICAL/VAGINAL 06/23/2023 10:51 AM EDT [facility] Interpretation NEGATIVE FOR INTRAEPITHELIAL LESION OR MALIGNANCY 06/23/2023 10:51 AM EDT [facility] at 1051 EDT Specimen Adequacy Satisfactory for evaluation; endocervical/maynard sformation zone component present. Slide scanned and imaged by ThinPrep Imaging System with manual review of all selected kincaid. 06/23/2023 10:51 AM EDT [facility] Cervical cytology is a screening test primarily for squamous cancers and precursors and has associated false negative and positive results. New technologies such as liquid based sampling may decrease but will not eliminate all false negative results. Regular screening and follow-up of unexplained clinical signs and symptoms are recommended to minimize false negative results. Please see the ASCCP website (www.asccp.org)fo r followup recommendations. If HPV testing was requested, correlation with the results is suggested (please call Microbiology at [phone] for results). 06/23/2023 10:51 AM EDT [facility] Menstrual Status Post- 023 10:51 AM EDT [facility] History of Hysterectomy Not Applicable 06/23/2023 10:51 AM EDT [facility] Contraceptive History Not Applicable 06/23/2023 10:51 AM EDT [facility] Screening Type Routine Screen 2022 10:51 AM EDT [facility] High Risk? No 06/23/2023 10:51 AM EDT [facility] HPV Testing Requested? Request HPV testing if ASCUS or LSIL. 06/23/2023 10:51 AM EDT [facility] Previous Cancer History No 06/23/2023 10:51 AM EDT [facility] Clinical Information Z01.419, Z12.72 - Smear, vaginal, as part of routine gynecological examination [ICD-10-CM] 06/23/2023 10:51 AM EDT [facility] Swab Vaginal and cervical cytologic material / Unknown Non-blood Collection / Unknown 06/15/2023 11:28 AM EDT 06/16/2023 10:31 AM EDT us Tadeo Mcdowell MD LAB CYTOLOGY ORDERABLES Final R esult [facility] [address] [place] [address] from Last 3 Months or Most Recently Relevant to Health Maintenance Additional Health Concerns Active Problems Noted Date Diagnosed Date CPM S22 PP LABOR (OBSTETRICS) 10/05/2022 Insurance [facility] MEDICAID Care Teams Academic Coach Relationship Specialty Start Date End Date Kyle Fonseca MD [address] [place] [address] PCP - General Internal Medicine 11/25/22
--- OUTSIDE RECORDS SUMMARY | 2025-04-01 12:29 | XMS_ITS | Referral Summary ---
Author Organization [employer] Address [address] [place] [address] Care Team Providers Care Quad Stayer Name Role Phone Unavailable Primary Care Provider Unavailabl e Social History Tobacco Use Types Packs/Day Years Used Date Smoking Tobacco: Never Assessed Comments Unknown Sex and Gender Information Value Date Recorded Sex Assigned at Female 04/19/2022 6:34 PM CDT Legal Sex Female 6:34 PM CDT Gender Identity Female 04/19/2022 6:34 PM CDT Sexual Orientation Not on file Plan of Treatment Not on file
--- OUTSIDE RECORDS SUMMARY | 2025-04-01 12:29 | XMS_ITS | Encounter Summary ---
Author Organization [employer] Address [address] [place] [address] Care Team Providers Care Bicycle Ii Assembler Name Role Phone Unavailable Primary Care Provider Unavailabl e Encounter Details Date Type Department Care Team (Late st Contact Info) Description 12/14/2019 Transcribed Document [facility] Radiology [address] [place] [address] Krishan Carranza MD [address] [place] [address] Dept. [place] [address] Social History Tobacco Use Types Packs/Day Years Used Date Smoking Tobacco: Never Assessed Comments Unknown Sex and Gender Information Value Date Recorded Sex Assigned at Female 04/19/2022 6:34 PM CDT Legal Sex Female 6:34 PM CDT Gender Identity Female 04/19/2022 6:34 PM CDT Sexual Orientation Not on file documented as of this encounter Miscellaneous Notes * Cerner Conversion Note - Krishan Carranza MD - 12/14/2019 11:51 PM EST Patient: SANDRA OSL Age: 24 years Sex: Female : 1995 Associated Diagnoses: Abscess - simple; Oral cavity pain; Gingival abscess; Gingivitis; Oral lesion; Tooth pain Author: KRISHAN CARRANZA MD-EMR Basic Information Additional information: Chief Complaint from Nursing Triage Note : Chief Complaint 12/14/2019 22:35 EST Chief Complaint Pt co abcess on her gum. Went to ER monday and was given clindamycin. States she tried to pop it at home, but started to leak in the waiting room . History of Present Illness The patient presents with dental pain and mouth pain. The onset was 3 weeks ago. The course/duration of symptoms is constant. Type of injury: none. The location where the incident occurred was at home. The character of symptoms is pain and swelling. The degree of pain is moderate. The exacerbating factor is none. The relieving factor is none. Risk factors consist of none. Prior episodes: none. Review of Systems Additional review of systems information: All other systems reviewed and otherwise negative. Health Status Allergies: Allergic Reactions (Selected) No Known Allergies. Past Medical/ Family/ Social History Medical history Reviewed as documented in chart. Surgical history: No active procedure history items have been selected or recorded.. Family history: No family history items have been selected or recorded.. Social history: Social & Psychosocial Habits No Data Available , Reviewed as documented in chart. Problem list: Per nurse's notes. Physical Examination Vital Signs Vital Signs/Vital Measures 12/14/2019 22:35 EST Systolic Blood Pressure 138 mmHg Diastolic Blood Pressure 77 mmHg Temperature Source Oral Temperature Mode Fahrenheit Temperature, Fahrenheit 98.0 Deg F Clinical Temperature, C 36.7 Deg C Peripheral Pulse Rate 76 bpm Respiratory Rate 18 Breaths/Min Oxygen Saturation 99 % Oxygen Therapy Mode Room air . General: Alert. Skin: Dry. Head: Atraumatic, no marked cellulitis. Neck: Trachea midline, no submandibular swelling. Eye: Normal conjunctiva. Ears, nose, mouth and throat: Oral mucosa moist, gingival abscess/lesion over tooth #8., there is no significant facial erythema. Cardiovascular: Normal peripheral perfusion. Respiratory: Respirations are non-labored. Chest wall: No tenderness. Back: Nontender. Musculoskeletal: Normal ROM, normal strength. Gastrointestinal: Soft, Nontender. Genitourinary: No tenderness. Neurological: Alert and oriented to person, place, time, and situation, No focal neurological deficit observed. Lymphatics: No lymphadenopathy. Psychiatric: Cooperative. Medical Decision Making Documents reviewed: Emergency department nurses' notes, emergency department records. Impression and Plan Diagnosis Complaint of Abscess - simple - Reason For Visit, Medical Oral cavity pain - Reason For Visit, Emergency medicine, Medical Gingival abscess - Discharge, Emergency medicine, Medical Gingivitis - Discharge, Emergency medicine, Medical Oral lesion - Discharge, Emergency medicine, Medical Tooth pain - Discharge, Emergency medicine, Medical Plan Condition: Stable. Prescriptions: Prescription Vehicle Technician Pharmacy: [place] 5 mg-325 mg oral tablet (Prescribe): 1 Tab, Oral, TID, for 2 Day(s), PRN: for pain, 9 Tab, 0 Refill(s) Flagyl 250 mg oral tablet (Prescribe): 1 Tab, Oral, Q8H, for 7 Day(s), 21 Tab, 0 Refill(s). Patient was given the following educational materials: Dental Abscess, [id number], Cellulitis, Adult, Mfkb-nr-Dbws, Cellulitis, Adult, Lxuy-vn-Dvwx, Dental Abscess, Rqow-lp-Gagx. Follow up with: JESSI (REF) BELÉN Within 2 to 3 days; CASPER AMADOR In 2 days 12/16/2019, CAS[facility] AMADOR In 2 days 12/16/2019; JESSI (REF) BELÉN Within 2 to 3 days; [facility] General Dentistry Within 2 to 3 days. documented in this encounter Plan of Treatment Not on file documented as of this encounter Visit Diagnoses Not on filedocumented in this encounter
--- OUTSIDE RECORDS SUMMARY | 2025-04-01 12:29 | XMS_ITS | Encounter Summary ---
Author Organization Healthcare Address [address] [place] [address] Care Team Providers Care Historic Sites Registrar Name Role Phone Kyle Fonseca MD Primary Care Provider [phone] Reason for Visit * Reason Onset Date Comments HCN - Patient Message 01/06/2025 Encounter Details Date Type Department Care Team ([facility] Contact Info) Description 01/06/2025 Telephone Obstetrics & Gynecology [address] [place] [address] Blanca Graves MD [address] [place] [address] HCN - Patient Message Social History Tobacco Use Types Packs/Day Years Used Date Smoking Tobacco: Every Day Cigarettes 0.5 2 Smokeless Tobacco: Never Alcohol Use Standard Drinks/Week Comments Not Currently 0 (1 standard drink = 0.6 oz pur e alcohol) PHQ-2 Answer Date Recorded Patient Health Questionnaire-2 Score 0 01/20/2025 [place] Depression Scale Answer Date Recorded [place] Depression Scale Total 0 06/15/2023 The thought of harming myself has occurred to me . Never 06/15/2023 PHQ-9 Answer Date Recorded Patient Health Questionnaire-9 Score 0 01/20/2025 PHQ-2A Answer Date Recorded Patient Health Questionnaire-2 Score 0 06/15/2023 Comments Yes Sex and Gender Information Value Date Recorded Sex Assigned at Not on file Legal Sex Female 5:59 PM EDT Gender Identity Not on file Sexual Orientation Not on file documented as of this encounter Functional Status * Over the past 2 weeks, how often have you been bothered by any of the following problems? Question Answer Date of Assessment Author Little interest or pleasure in doing things Not at all 01/20/2025 11:02 AM Yennifer Smith Feeling down, depressed, or hopeless Not at all 01/20/2025 11:02 AM Yennifer Smith Patient Health Questionnaire -2 Score 0 01/20/2025 11:02 AM Yennifer Smith * Question Answer Date of Assessment Author Trouble falling or staying asleep, or sleeping too much Not at all 01/20/2025 11:02 AM Yennifer Smith Feeling tired or having gricelda le energy Not at all 01/20/2025 11:02 AM Yennifer Smith Poor appetite or overeating Not at all 01/20/2025 11 :02 AM Yennifer Smith Feeling bad about yourself - or that you are a failure or have let yourself or your family down Not at all 01/20/2025 11:02 AM Yennifer Kendall Trouble concentrating on thi ngs, such as reading the newspaper or watching television Not at all 01/20/2025 11:02 AM Yennifer Smith Moving or speaking so slowly that other people could have noticed? Or the opposite - being so fidgety or restless that you have been moving around a lot more than usual. Not at all 01/20/2025 11:02 AM Yennifer Smith Thoughts that you would be b jose off or hurting yourself in some way Not at all 01/20/2025 11:02 AM Yennifer Smith Patient Health Questionnaire -9 Score 0 01/20/2025 11:02 AM Yennifer Smtih * If you checked off any problems on this questionnaire so far, Question Answer Date of Assessment Author How difficult have these problems made it for you to do your work, take care of things at home, or get along with other people? Not difficult at all 01/20/2025 11:02 AM Yennifer Smith documented as of this encounter Miscellaneous Notes * Telephone Encounter - Gabriele Arenas - 01/06/2025 1:07 PM EDT Patient came in office. * Telephone Encounter - Cheri Yang - 01/06/2025 11:52 AM EDT Patient Phone Message Reason for Call:she is 16 weeks and today when she wiped had brown discharge. Please call [facility] Best contact number and optimal time of day to reach caller:[phone] Note: Please do not reply to this message. Follow-up communication and further actions as a result of this message need to be communicated with the patient directly, if the patient is not active onMyChart. If the patient is active on MyChart, they will receive notification of the communication/outcome via [employer]. documented in this encounter Plan of Treatment Not on file documented as of this encounter Goals Goal Patient Goal Type Associated Problems Recent Progress Patient-Stated? Author Delayed Delivery Care Plan CPM S22 PP LABOR (OBSTETRICS) No Open Scheduling, Background documented as of this encounter Visit Diagnoses Not on filedocumented in this encounter Additional Health Concerns Active Problems Noted Date Diagnosed Date CPM S22 PP LABOR (OBSTETRICS) 10/05/2022 Assessment Noted Time PHQ-9 Depression Total Score: 0 01/07/20 25 1:24 PM EDT A fall risk assessment has been complete d for the patient 01/06/2025 1:24 PM EDT A Body Mass Index follow-up plan has been documented for the patient 01/06/2025 4:54 PM EDT documented as of this encounter Care Teams Historic Sites Registrar Relationship Specialty Start Date End Date Kyel Fonseca MD [address] [place] [address] PCP - General Internal Medicine 11/25/22 documented as of this encounter
--- OUTSIDE RECORDS SUMMARY | 2025-04-01 12:29 | XMS_ITS | Encounter Summary ---
Author Organization [employer] Address [address] [place] [address] Care Team Providers Care Forge Heater Name Role Phone Unavailable Primary Care Provider Unavailabl e Encounter Details Date Type Department Care Team (Late st Contact Info) Description 12/14/2019 Transcribed Document [facility] [place] [facility] [place] [address] ProviderMerry MD [facility] [place] [address] Social History Tobacco Use Types [...] Cerner Conversion Note - Merry ProviderMD - 12/14/2019 9:45 PM BOARD HANDLER ED Assessment Entered On: 12/14/2019 22:45 EST Performed On: 12/14/2019 22:45 EST by Stuart Bailey RN ED Quick Look Assessment Level of Consciousness : Alert, Awake Affect/Behavior : Appropriate, Calm, Cooperative Orientation : Oriented x 4 Skin Temperature : Warm Skin Description : Normal for ethnicity Stuart Bailey RN - 12/14/2019 22:45 EST ED General-Functional Assess Information Obtained From : Patient Communication Barrier : None Primary Language : Citizen Of [place] Any Spiritual/Cultural Needs or Requests : No Currently in Unsafe Situation : No Stuart Bailey RN - 12/14/2019 22:45 EST Social Habits Smoking Status : Never (less than 100 in lifetime; none in last 30 days) Smokeless Tobacco Status : Never Desires Tobacco Cessation Calc : 0 Stuart Bailey RN - 12/14/2019 22:45 EST Social History (As Of: 12/14/2019 22:45:55 EST) Integumentary Assessment Integumentary Assessment WDL : WDL with exceptions (Comment: pt co abscess on the inside of her gums. States it was weeping in the waiting room [Stuart Bailey RN - 12/14/2019 22:45 EST] ) Stuart Bailey RN - 12/14/2019 22:45 EST Electronically signed by Rosana [facility] Conversion Novelty Balloon Assembler And Packer Cerner at 02/08/2023 8:11 AM CDT documented in this encounter Plan of Treatment Not on file documented as of this encounter Visit Diagnoses Not on filedocumented in this encounter
--- OUTSIDE RECORDS SUMMARY | 2025-04-01 12:29 | XMS_ITS | Encounter Summary ---
Author Organization [employer] Address [address] [place] [address] Care Team Providers Care Freezer Tunnel Operator Name Role Phone Unavailable Primary Care Provider Unavailabl e Encounter Details Date Type Department Care Team (Late st Contact Info) Description 12/15/2019 Transcribed Document [facility] [address] [place] [address] Krishan Santana MD [address] [place] [address] Dept. of Emergency Medicine [place] [id number] Social History Tobacco Use Types Packs/Day Years Used Date Smoking Tobacco: Never Assessed Comments Unknown Sex and Gender Information Value Date Recorded Sex Assigned at Female 04/19/2022 6:34 PM CDT Legal Sex Female 6:34 PM CDT Gender Identity Female 04/19/2022 6:34 PM CDT Sexual Orientation Not on file documented as of this encounter Miscellaneous Notes * Cerner Conversion Note - Krishan Santana MD - 12/15/2019 2:18 AM EST documented in this encounter Plan of Treatment Not on file documented as of this encounter Visit Diagnoses Not on filedocumented in this encounter
--- OUTSIDE RECORDS SUMMARY | 2025-04-01 12:29 | XMS_ITS | Encounter Summary ---
Author Organization [facility] [employer] Address [address] [place] [address] Care Team Providers Care Airline Radio Operator Name Role Phone Unavailable Primary Care Provider Unavailabl e Encounter Details Date Type Department Care Team (Late st Contact Info) Description 12/15/2019 Transcribed Document [facility] [place] [address] [place] [address] ProviderMerry MD [facility] [place] [address] Social History Tobacco Use Types Packs/Day Years Used Date Smoking Tobacco: Never Assessed Comments Unknown Sex and Gender Information Value Date Recorded Sex Assigned at Female 04/19/2022 6:34 PM CDT Legal Sex Female 6:34 PM CDT Gender Identity Female 04/19/2022 6:34 PM CDT Sexual Orientation Not on file documented as of this encounter Miscellaneous Notes * Cerner Conversion Note - Historical Provider, - 12/15/2019 3:50 AM FOREST PATHOLOGIST ED Discharge Entered On: 12/15/2019 3:51 EST Performed On: 12/15/2019 3:50 EST by Stuart Bailey RN Discharge Process Patient Disposition : Discharge Personal Belongings With Patient : Yes Patient Education Completed : Yes Teaching Evaluation : Verbalizes understanding IV Discontinued : Yes Nursing Documentation Completed : Yes Stuart Bailey RN - 12/15/2019 3:50 EST ED Discharge Discharge To : Home with ambulatory/outpatient follow-up Mode Of Departure : Private vehicle Accompanied By : Significant other Discharge Instructions Reviewed With, Opportunity For Questions Given : Patient Prescriptions Given to Patient : Yes Number of Prescriptions Given : 2 Stuart Bailey RN - 12/15/2019 3:50 EST Electronically signed by Rosana [facility] Conversion Business Services Clerk Cerner at 02/08/2023 8:17 AM CDT documented in this encounter Plan of Treatment Not on file documented as of this encounter Visit Diagnoses Not on filedocumented in this encounter
--- OUTSIDE RECORDS SUMMARY | 2025-04-01 12:29 | XMS_ITS | Encounter Summary ---
Author Organization Healthcare Address [address] [place] [address] Care Team Providers Care Quality Eng Name Role Phone Kyle Fonseca MD Primary Care Provider [phone] Encounter Details Date Type Department Care Team (Latest Contact Info) Description 02/17/2025 Travel Social History Tobacco Use Types Packs/Day Years [...] week 02/17/2025 How often do you attend [facility] or scientologist services? Never 02/17/2025 Do you belong to any clubs o r organizations such as yazdanism groups, unions, fraternal or athletic groups, or [...] Recorded Patient Health Questionnaire-2 Score 0 01/20/2025 [facility] Occup[facility] ional Health - Occupational Stress [...] things needed for daily living? No 02/17/2025 [place] Depression Scale Answer Date Recorded [place] Depression Scale Total 0 06/15/2023 The thought [...] any time in the past 12 m [facility], were you homeless or living in a residential (including now)? No 02/17/2025 Utilities Answer Date [...] as of this encounter Functional Status * AUDIT-C Score Answer Date of Assessment Author 0 02/17/2025 11:17 AM Odessa Walker * Question Answer Date of Assessment Author Q1: How often do you have a drink containing alcohol? Never 02/17/2025 11:17 AM Odessa Walker Q2: How many drinks containing alcohol do you have on a typical day when you are drinking? Patient does not drink 02/17/2025 11:17 AM Odessa Walker Q3: How often do you have six or more drinks on one occasion? Never 02/17/2025 11:17 AM Odessa Walker documented as of this encounter Plan of Treatment Not on [...] documented as of this encounter Care Teams Quality Eng Relationship Specialty Start Date End Date Kyle Fonseca MD [address] [place] [address] PCP - General Internal Medicine 11/25/22 documented as of this encounter
--- OUTSIDE RECORDS SUMMARY | 2025-04-01 12:29 | XMS_ITS | Clinical Summary ---
Author Organization [employer] Address [address] [place] [address] Care Team Providers Care Clinical Documentation Specialist Name Role Phone Unavailable Primary Care Provider [...]
--- OUTSIDE RECORDS SUMMARY | 2025-04-01 12:29 | XMS_ITS | Encounter Summary ---
Author Organization [employer] Address [address] [place] [address] Care Team Providers Care It Associate Name Role Phone Unavailable Primary Care Provider Unavailabl e Encounter Details Date Type Department Care Team (Late st Contact Info) Description 12/14/2019 Transcribed Document [facility] [place] Medicine [address] [place] [address] ProviderMerry MD [address] [place] [address] Social History Tobacco Use Types [...] - Historical ProviderMD - 12/14/2019 9:45 PM PROFESSOR OF FAMILY MEDICINE [place] Suicide Severity Rating Scale (C-SSRS) Entered On: 12/14/2019 22:46 EST Performed On: 12/14/2019 22:45 EST by Stuart Bailey RN [place] Suicide Severity Rating Scale (C-SSRS) CSSRS Past Month Wish to be : No CSSRS Past Month Suicidal Thoughts : No CSSRS Lifetime Suicide Behavior : No Suicide Severity Rating Score : 0 Suicide Severity Rating : No Additional Care Required at this time Stuart Bailey RN - 12/14/2019 22:45 EST documented in this encounter Plan of Treatment Not on file documented as of this encounter Visit Diagnoses Not on filedocumented in this encounter
--- OUTSIDE RECORDS SUMMARY | 2025-04-01 12:29 | XMS_ITS | Encounter Summary ---
Author Organization Healthcare Address [address] [place] [address] Care Team Providers Care Plant Sciences Professor Name Role Phone Kyle Fonseca MD Primary Care Provider [phone] Encounter Details Date Type Department Care Team (Late st Contact Info) Description 01/17/2025 Results Follow-Up Obstetrics & Gynecology [address] [place] [address] Blanca Graves MD [address] [place] [address] Social History Tobacco Use Types Packs/Day Years [...] 02/17/2025 How often do you attend chur ch or pentecostalism services? Never 02/17/2025 Do you belong to any clubs o r organizations such as protestant groups, unions, fraternal or athletic groups, or [...] Recorded Patient Health Questionnaire-2 Score 0 01/20/2025 [facility] of Occupat ional Health - [...] things needed for daily living? No 02/17/2025 [place] Depression Scale Answer Date Recorded [place] Depression Scale Total 0 06/15/2023 The thought [...] any time in the past 12 m [facility], were you homeless or living in a intermediate (including now)? No 02/17/2025 Utilities Answer Date [...] one occasion? Never 02/17/2025 11:17 AM EDT [place], Od[place] L * Over the past 2 weeks, how [...] -9 Score 0 01/20/2025 11:02 AM Yennifer Smith * If you checked off any problems on this questionnaire so far, Question Answer Date of Assessment Author How difficult have these problems made it for you to do your work, take care of things at home, or get along with other people? Not difficult at all 01/20/2025 11:02 AM Yennifer Smith documented as of this encounter Plan of [...] Noted Time PHQ-9 Depression Total Score: 0 01/14/20 25 10:47 AM EDT A fall risk assessment has been complete d for the patient 01/13/2025 10:49 AM EDT A Body Mass Index follow-up plan has been documented for the patient 01/13/2025 1:06 PM EDT documented as of this encounter Care Teams Plant Sciences Professor Relationship Specialty Start Date End Date Kyle Fonseca MD [address] [place] [address] PCP - General Internal Medicine 11/25/22 documented as of this encounter
--- OUTSIDE RECORDS SUMMARY | 2025-04-01 12:29 | XMS_ITS | Encounter Summary ---
Author Organization Healthcare Address [address] [place] [address] Care Team Providers Care Career Discovery Teacher Name Role Phone Kyle Fonseca MD Primary Care Provider [phone] Reason for Visit * Reason Comments Med Refill Encounter Details Date Type Department Care Team (Late st Contact Info) Description 03/12/2025 Refill Obstetrics & Gynecology [address] [place] [address] Tadeo Mcdowell MD [address] [place] [address] Social History Tobacco Use Types [...] often do you attend chur ch or zoroastrian services? Never 02/17/2025 Do you belong to any clubs o r organizations such as anabaptist groups, unions, fraternal or athletic groups, or [...] Recorded Patient Health Questionnaire-2 Score 0 01/20/2025 [facility] Occup[facility] ional Health - Occupational [...] things needed for daily living? No 02/17/2025 [place] Depression Scale Answer Date Recorded [place] Depression Scale Total 0 06/15/2023 The thought [...] any time in the past 12 m [facility], were you homeless or living in a snf (including now)? No 02/17/2025 Utilities Answer Date [...] * Telephone Encounter - Gabriele Arenas - 03/13/2025 8:52 AM EDT Shouldn't still need. documented in this encounter Plan of Treatment [...] documented as of this encounter Care Teams Career Discovery Teacher Relationship Specialty Start Date End Date Kyle Fonseca MD [address] [place] [address] PCP - General Internal Medicine 11/25/22 documented as of this encounter
[2025-04-01 13:04] LABS: Basophils # 0.1 K/mm3 (0-0.2); Basophils % 0.9 % (0.1-2.0); Eosinophils # 0.1 Kmm3 (0.0-0.4); Eosinophils % 1.8 % (0.1-12.0); Hematocrit 38.7 % (37.0-47.0); Immature Granulocytes # 0.01 10^3uL; Immature Granulocytes % 0.1 %; Lymphocytes # 1.9 K/mm3 (0.7-4.5); Lymphocytes % 27.6 % (10-50); Mean Corpuscular HGB Conc 33.6 g/dL (31.8-35.4); Mean Corpuscular Hemoglobin 29.9 pg (27.0-31.2); Mean Platelet Volume 9.5 fl (7.4-10.4); Monocytes # 0.5 K/mm3 (0.1-1.0); Monocytes % 6.7 % (1.7-9.3); Neutrophils # 4.3 K/mm3 (1.8-7.8); Neutrophils % 62.9 % (37.0-80.0); Nucleated Red Blood Cells # 0 10^3/uL; Nucleated Red Blood Cells % 0 %; Platelet Count 315 K/mm3 (142-424); Red Blood Count 4.35 M/mm3 (4.20-5.40); Red Cell Distribution Width 13.7 % (11.5-17.5); Red Cell Distribution Width-SD 44.6 fL; White Blood Count 6.9 K/mm3 (4.8-10.8)
[2025-04-01 13:10] LABS: Urine Pregnancy, HCG Qual. Negative (Negative)
[2025-04-01 13:25] LABS: Alanine Aminotransferase 27 U/L (12-78); Albumin Level 4.3 g/dl (3.5-5.0); Albumin/Globulin Ratio 1.5 (1.1-1.8); Alkaline Phosphatase 56 U/L (38-126); Anion Gap 8.8 mEq/L (5-15); Aspartate Amino Transferase 28 U/L (14-36); Bilirubin,Total 0.4 mg/dl (0.2-1.3); Blood Urea Nitrogen 8 mg/dl (7-17); Calcium 9.1 mg/dl (8.4-10.2); Carbon Dioxide 24 mmol/L (22.0-30.0); Chloride 109 mmol/L (98-107); Estimated Glomerular Filt Rate 118 ml/min (>60); GFR (African American) 143 ML/MIN (>60); Globulin 2.9 g/dL (1.3-3.2); Glucose 96 mg/dl (74-100); Potassium 3.8 mmoL/L (3.5-5.1); Sodium 138 mmol/L (136-145); Total Protein,Serum 7.2 g/dl (6.3-8.2)
== END 2025-04-01 23:59 | disposition home or self-care (01) ==
LOC: PREOP 12:27
PROVIDERS: PCP Internal Medicine Adolescent Medicine; Visit Provider Surgery
DX: R10.11 Right upper quadrant pain (principal)
CPT/HCPCS: 80053; 81025; 85025

== ENCOUNTER 2025-04-07 06:02 | Day surgery (SDC) | payer OTHER, SELFPAY ==
[2025-04-01 13:41] VITALS: BMI 37.9
[2025-04-07] VITALS (11 sets, daily range): BP systolic 118–142; BP diastolic 62–95; PULSE 67–80; RESP 15–18; TEMP 36.1–38; O2SAT 93–97
[2025-04-07] MEDS: LACTATED RINGERS 1000ML 1,000 ML 25 ML IV (06:17)
--- NOTE | 2025-04-07 07:09 | EXP.GEN.HP ---
HPI HPI HPI: Patient presents for cholecystectomy. Patient is a 30-year-old female referred to the emergency department for gallbladder and seen in the office initially on 02/25/2025.. She was seen in the ER on 02/11/2025 with right upper quadrant pain. She was found to have significant tenderness in the right upper quadrant. She describes pain in the right upper quadrant. When she had a severe attack this occurred after she had eaten some peanut butter crackers. She had a CT scan performed which revealed a multitude of nonspecific findings. Gallbladder was unremarkable on CT scan. She did have [id number] ultrasound done in the emergency department which revealed findings suggestive of gallstones without sonographic evidence of cholecystitis. She was able to be managed as an outpatient. She was sent for surgical consultation. Subsequently she has done well. She has only had some minor episodes of discomfort. 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 She does see SENIOR IOS DEVELOPER regularly in [place] for her known ovarian cyst. I had her undergo dedicated gallbladder ultrasound. This reveals findings of fatty liver. Cholelithiasis. . Spleen is noted to be normal. Options were discussed with the patient. She did wish to pursue cholecystectomy. . [facility] Disclaimer: The information contained in this section may have been updated after the patient was seen, as this information can be updated by other users. Medical History No significant past medical history Surgical History History of wisdom tooth extraction History of tonsillectomy and adenoidectomy Family History Family history of diabetes mellitus Social History Smoking Status: Current every day smoker alcohol intake: never current occupational status: unemployed Travel in the last 8 weeks?: None Have you lived/traveled outside [place] in past 30 days?: No Contact w/someone who lives/traveled outside US past 30 days?: No Exposure to someone with infectious disease in past 14 days?: No Do you have a fever (greater than 100.4 F or 38 C)?: No Have you tested positive for COVID-19?: No Exposed to someone with COVID-19 in past 14 days?: No Do you have a sore throat?: No Do you have a cough?: No Do you have any weakness?: No Do you have any diarrhea?: No Are you experiencing any unusual bleeding?: No Do you have any muscle aches/pain?: No Do you have any abdominal pain?: No Are you experiencing loss of taste or smell?: No Other Medical History Have you received the Pneumonia Vaccine: No Review of Systems Review of Systems Review of systems:: pertinent systems reviewed and negative unless documented below Meds Home Medications and Allergies Home Medications ?Medication ?Instructions ?Recorded ?Confirmed ?Type No Known Home Medications 03/06/25 04/07/25 History New Prescriptions to Start Prescriptions: Allergies Allergy/AdvReac Type Severity Reaction Status Date / Time No Known Allergies Allergy Verified 04/07/25 06:20 Exam Data for Last 24 hours Vital signs and Labs for Last 24 Hours: Temp Pulse Resp BP Pulse Ox O2 Del Method 97.0 F L 67 18 118/68 96 Room Air 04/07/25 06:21 04/07/25 06:21 04/07/25 06:21 04/07/25 06:21 04/07/25 06:21 04/07/25 06:21 Constitutional Constitutional: no acute distress *Routine HEENT Exam Head: Present normocephalic Eye: Present EOMI and PERRL ENT: Present mucous membranes moist *Routine Neck Exam Neck: Present supple; Absent lymphadenopathy *Routine Respiratory Exam Respiratory: Present CTA bilaterally *Routine Cardiovascular Exam Cardiovascular: Present RRR *Routine Abdominal Exam Abdominal: Present soft and normoactive bowel sounds; Absent tenderness *Routine Rectal Exam Rectal:: deferred *Routine Genitalia Exam Genitalia:: deferred *Routine Extremities Exam Extremities: Absent cyanosis, clubbing or edema *Routine Skin Exam Skin: Present warm; Absent rash *Routine Neurological Exam Neurological: Present alert and oriented X3 Assessment and Plan *Assessment and plan (1) Cholelithiasis: Status: Acute Qualifiers: Biliary obstruction: with biliary obstruction Cholecystitis presence: without cholecystitis Cholelithiasis location: gallbladder Qualified Code(s): K80.21 - Calculus of gallbladder without cholecystitis with obstruction Category: Medical Code(s): K80.20 - Calculus of gallbladder without cholecystitis without obstruction Plan Plan to proceed with laparoscopic possibly open cholecystectomy. Nature and details of the proposed procedure along with the associated risks and expected outcome were explained. She understands and agrees to proceed
--- NOTE | 2025-04-07 07:15 | P.PNANES_ITS ---
[facility] Disclaimer: The information contained in this section may have been updated after the patient was seen, as this information can be updated by other users. Medical History No significant past medical history Surgical History History of wisdom tooth extraction History of tonsillectomy and adenoidectomy Family History Other Family history of diabetes mellitus Social History Smoking Status: Current every day smoker alcohol intake: never substance use type: denies use current occupational status: unemployed Travel in the last 8 weeks?: None [facility] Anesthesia Checklist Patient Identification Patient Identification: Arm Band and Verbal (Name & ) Structural Data Admitted From: Home Planned Operative Procedure/s: Laparoscopic cholecystectomy Consent for Planned Operative Procedure(s) Verified: Yes Verified Documents: Surgical Consent NPO Status Verified Time NPO: 00:00 Chart Verification Results Verified: HCG Additional verifications Patient : No Anesthesia Reactions: No Hx Blood Transfusions: No Blood Transfusion Reaction: No Airway Assessment Mallampati Score:: Class II C-Spine Mobility Assessed: Yes TMJ Mobility Assessed: Yes Dentition: Good Dentition Neurological Assessment Level of Consciousness: Awake, Alert and Appropriate Hx Seizures: No Numbness or tingling in extremities: No Anesthesia Plan Anesthesia Risk discussed: Yes Anesthesia Plan: Verified ASA Class: II Anesthesia Type: General
[2025-04-07] MEDS: LIDOCAINE 1% 20ML MDV 20 ML (07:51)
[2025-04-07] MEDS: ROPIVACAINE 0.5% 30ML VIAL 150 MG (07:51)
[2025-04-07] MEDS: CEFAZOLIN SODIUM 2 GM in 0.9 % SODIUM CHLORIDE 100 ML IV (07:51)
[2025-04-07] MEDS: SODIUM CHLORIDE IRRIG SOLUTION 3,000 ML 3000 ML IR (07:53)
--- NOTE | 2025-04-07 08:50 | P.OP_ITS ---
Date of procedure: 04/07/25 Pre-op Diagnosis:: Symptomatic gallstones Post-op Diagnosis:: Same Procedure performed:: Laparoscopic cholecystectomy Surgeon:: Steve Johnson MD Anesthesia: DIANA Estimated blood loss (mL): 20 Clinical Note:: Patient presents for cholecystectomy. Patient is a 30-year-old female referred to the emergency department for gallbladder and seen in the office initially on 02/25/2025.. She was seen in the ER on 02/11/2025 with right upper quadrant pain. She was found to have significant tenderness in the right upper quadrant. She describes pain in the right upper quadrant. When she had a severe attack this occurred after she had eaten some peanut butter crackers. She had a CT scan performed which revealed a multitude of nonspecific findings. Gallbladder was unremarkable on CT scan. She did have [id number] ultrasound done in the emergency department which revealed findings suggestive of gallstones without sonographic evidence of cholecystitis. She was able to be managed as an outpatient. She was sent for surgical consultation. Subsequently she has done well. She has only had some minor episodes of discomfort. 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 She does see SENIOR ADMINISTRATIVE ASSOCIATE regularly in [place] for her known ovarian cyst. I had her undergo dedicated gallbladder ultrasound. This reveals findings of fatty liver. Cholelithiasis. . Spleen is noted to be normal. Options were discussed with the patient. She did wish to pursue cholecystectomy. Operative findings:: She had appreciable hepatomegaly and fatty infiltration of the liver. Gallbladder was elongated and distended. Operative note:: Consent was obtained patient was taken the operating room. She was positioned in supine position. General anesthesia was induced via endotracheal tube. Abdomen was prepped and draped in the standard surgical fashion. Subumbilical skin incision was made and while performing abdominal wall lift Veress needle was inserted. CO2 pneumoperitoneum was achieved to 15 mmHg. 11 mm optical trocar was inserted at the umbilicus. She was positioned in reverse Trendelenburg left side down. A couple 5 mm trocars were inserted in the right abdomen. 11 mm trocar was inserted at the umbilicus. She was found to have some notable hepatomegaly and fatty infiltration of the liver. The liver was somewhat wrapped around the gallbladder given its enlargement. Gallbladder is retracted anteriorly over the dome of the liver. There were some omental adhesions to the gallbladder which were carefully taken down using blunt di ssection with limited use of ultrasonic harmonic mo. Infundibulum/Keane's pouch of the gallbladder was retracted anterior laterally. Prolonged careful dissection was carried out using blunt dissection with limited use of [place] ultrasonic robotic mo. Ultimately the cystic duct and cystic artery were identified, isolated. The cystic duct was isolated, multiply clipped, and sharply divided. Cystic artery was carefully coagulated with a's ultrasonic robotic mo and divided. Gallbladder was dissected free from the liver in a retrograde fashion using a's ultrasonic harmonic mo. Gallbladder was placed within an Endo Catch retrieval device and removed from the peritoneal cavity via the umbilical trocar site which required some stretching of the fascia for delivery. Gallbladder fossa was inspected for hemostasis which was assured. Limited irrigation and suctioning was performed until clear. Trocars were then removed the CO2 pneumoperitoneum was evacuated. Fascia at the umbilicus was closed with a couple of 0 Vicryl sutures. Local anesthetic was infiltrated. Skin incisions closed with 4-0 Monocryl in a subcuticular fashion. Steri-Strips and dressings were applied. Condition: stable Disposition: PACU Complications:: None immediately apparent
--- NOTE | 2025-04-07 08:55 | EXP.ANES.I ---
[facility] Anesthesia Record Part I Anesthesia Record I Intake, IV Amount: 800 Hydration: Adequate Estimated blood loss (mL): 0 Urine output (mL): 0 Blood Products used (#): none Blood Pressure: 136/95 SaO2: 94 Pulse Rate: 80 Airway Patency: Patent Respiratory Rate: 16 Temperature: 97.6 F Patient is:: Drowsy and Stable Stable to PACU at:: 08:52
[2025-04-07] MEDS: KETOROLAC 30MG/ML VIAL 30 MG IV (09:16)
--- NOTE | 2025-04-07 09:32 | SUR.PHASEI ---
0929- Patient A/O x3. V/S stable and pain has improved after 30mg toradol given. Transported to post-op via stretcher and report given to Cindi Valdes RN.
--- NOTE | 2025-04-07 10:45 | EXP.ANES.II ---
[facility] Anesthesia Record Part II Anesthesia Record Part II Discharge Time: 09:50 Destination: Surgical Day Care (OP Surgery) PACU nurse assessment reviewed?: Yes Patient Condition:: Good Anesthesia Complications:: None Swallowing reflex intact?: Yes Airway Patency: Patent Cyanosis?: No Blood Pressure: 121/70 SaO2: 95 Respiratory Rate: 16 Pulse Rate: 74 Temperature: 97.0 F Mental Status: Alert & Oriented Pain level:: 0 Nausea and/or vomitting:: None Intake, IV Amount: 0 Hydration: Adequate
== END 2025-04-07 10:04 | disposition home or self-care (01) ==
PROVIDERS: PCP Internal Medicine Adolescent Medicine; Visit Provider Surgery
PROC: 0FT44ZZ Resection of Gallbladder, Percutaneous Endoscopic Approach (ICD-10-PCS; CPT 47562; principal; 2025-04-07 07:30)
DX: K80.10 Calculus of gallbladder with chronic cholecystitis without obstruction (principal); K76.0 Fatty (change of) liver, not elsewhere classified; F17.200 Nicotine dependence, unspecified, uncomplicated; Z56.0 Unemployment, unspecified
CPT/HCPCS: 47562; 96374; J0690; J1100; J1885; J2003; J2250; J2405; J2704; J2795; J3010; J7120